=== PATIENT | male | born 1995 | race Caucasian/White ===

== ENCOUNTER 2020-06-09 15:31 | Outpatient (REF) | payer BC, SELFPAY | END 2020-06-09 15:32 | disposition home or self-care (01) | LOC: HO.LAB 15:31 | PROVIDERS: Visit Provider Internal Medicine | DX: Z20.828 Contact with and (suspected) exposure to other viral communicable diseases (principal) | CPT/HCPCS: C9803; U0003 ==

== ENCOUNTER 2022-07-29 14:03 | Outpatient (REF) | payer BC, SELFPAY ==
[2022-07-29 16:32] LABS: Hematocrit 43.9 % (42.0-52.0); Hemoglobin 14.4 g/dl (14.0-18.0); Mean Corpuscular HGB Conc 32.8 g/dl (31.0-36.0); Mean Corpuscular Volume 85.2 fL (80.0-98.0); Mean Platelet Volume 11.7 fL (9.4-12.4); Platelet Count 235 X10*3/uL (160-400); Red Blood Count 5.15 X10*6/uL (4.60-5.80); Red Cell Distribution Width 12.9 % (11.0-16.0); White Blood Count 7.1 X10*3/uL (4.8-10.8)
[2022-07-29 16:54] LABS: Alanine Aminotransferase 21 U/L (0-40); Albumin Level 4.2 g/dL (3.5-5.0); Alkaline Phosphatase 78 U/L (39-117); Anion Gap 14 (12-20); Aspartate Amino Transferase 17 U/L (5-37); Bilirubin Direct < 0.2 mg/dL (0.0-0.5); Bilirubin Total 0.5 mg/dL (0.0-1.0); Blood Urea Nitrogen 18 mg/dL (9-16); Calcium 9.4 mg/dL (8.4-10.2); Carbon Dioxide 24 mmol/L (22-29); Chloride 106 mmol/L (96-108); Cholesterol 217 mg/dL; Estimated Glomerular Filt Rate > 60; Glucose Random 84 mg/dL (60-115); HDL Cholesterol 40 mg/dL; LDL Cholesterol Calculated 163 mg/dl; Potassium 4.1 mmol/L (3.3-5.1); Sodium 140 mmol/L (135-145); Total Protein 7.1 g/dL (6.5-8.0); Triglycerides 71 mg/dL
[2022-07-29 17:07] LABS: Thyroid Stimulating Hormone 1.37 uIU/mL (0.32-4.0)
== END 2022-07-29 14:04 | disposition home or self-care (01) ==
LOC: HO.HMGCLDS 14:03
PROVIDERS: PCP Internal Medicine; Visit Provider Internal Medicine
DX: Z00.00 Encounter for general adult medical examination without abnormal findings (principal); K21.9 Gastro-esophageal reflux disease without esophagitis
CPT/HCPCS: 36415; 80048; 80061; 80076; 84443; 85027

== ENCOUNTER 2022-10-11 13:55 | Outpatient (REF) | payer BC, SELFPAY ==
[2022-10-11 16:33] LABS: Appearance Urine Clear; Color Urine Yellow; Glucose Urine UA Negative (Negative); Leukocyte Esterase Urine Negative (Negative); Nitrite Urine Negative (Negative); Specific Gravity - Urine 1.025 (1.005-1.025); Urine Blood Negative (Negative); Urine Ketones Negative (Negative); Urine Protein Negative (Neg-Trace)
[2022-10-11 16:59] LABS: MANUAL DIFF FLAG NO
[2022-10-11 17:08] LABS: Basophils Absolute Auto 0.1 X10*3/uL (0.0-0.2); Basophils Percent Auto 0.8 % (0-2); Eosinophils Absolute Auto 0.2 X10*3/uL (0.0-0.4); Eosinophils Percent Auto 2.8 % (0-4); Hemoglobin 15.1 g/dl (14.0-18.0); Imm Gran Abs Auto 0.01 X10*3/uL (0.00-0.03); Imm Gran Pct Auto 0.2 % (0.0-0.4); Lymphocytes Absolute Auto 2.4 X10*3/uL (1.2-4.9); Lymphocytes Percent Auto 39.9 % (20-40); Mean Corpuscular HGB Conc 33.6 g/dl (31.0-36.0); Mean Corpuscular Volume 83.3 fL (80.0-98.0); Mean Platelet Volume 12.1 fL (9.4-12.4); Monocytes Absolute Auto 0.5 X10*3/uL (0.1-1.2); Monocytes Percent Auto 7.7 % (2-11); Neutrophils Absolute Auto 2.9 x10*3/uL (2.0-8.3); Neutrophils Percent Auto 48.6 % (45-73); Platelet Count 242 X10*3/uL (160-400)
[2022-10-11 17:28] LABS: Alanine Aminotransferase 25 U/L (0-40); Albumin Level 4.3 g/dL (3.5-5.0); Alkaline Phosphatase 73 U/L (39-117); Anion Gap 11 (12-20); Aspartate Amino Transferase 19 U/L (5-37); Bilirubin Total 0.8 mg/dL (0.0-1.0); Blood Urea Nitrogen 17 mg/dL (9-16); Calcium 9.4 mg/dL (8.4-10.2); Carbon Dioxide 25 mmol/L (22-29); Chloride 108 mmol/L (96-108); Cholesterol 236 mg/dL; Estimated Glomerular Filt Rate > 60; Glucose Fasting 99 mg/dL (60-99); HDL Cholesterol 40 mg/dL; LDL Cholesterol Calculated 177 mg/dl; Potassium 4.4 mmol/L (3.3-5.1); Sodium 140 mmol/L (135-145); Total Protein 7.2 g/dL (6.5-8.0); Triglycerides 95 mg/dL
[2022-10-11 17:44] LABS: TSH reflex Free T4 2.36 uIU/mL (0.32-4.0)
== END 2022-10-11 13:56 | disposition home or self-care (01) ==
LOC: HO.HMGCLDS 13:55
PROVIDERS: PCP Nurse Practitioner Family; Visit Provider Nurse Practitioner Family
DX: Z00.00 Encounter for general adult medical examination without abnormal findings (principal)
CPT/HCPCS: 36415; 80053; 80061; 81003; 84443; 85025

== ENCOUNTER 2022-10-12 11:08 | Emergency (ER) | payer BC, SELFPAY ==
--- NOTE | ~2022-10-12 | XR_ITS ---
EXAMINATION: XR FOOT, LEFT CLINICAL INFORMATION: Trauma COMPARISON: None available. TECHNIQUE: AP, lateral, and oblique views of the left foot. FINDINGS: The bones and soft tissues are normal. No fracture. Alignment is anatomic. Joint spaces are maintained. XR/XR foot LT 2V IMPRESSION: Normal left foot.
[2022-10-12 11:12] VITALS: BP 132/84; PULSE 65; RESP 20; TEMP 36.1; O2SAT 100; BMI 31.3
--- NOTE | 2022-10-12 11:13 | ED_ITS ---
HPI - Extremity Injury (Lower) General Chief Complaint: Skin/Abscess/Foreign Body <Grace Biswas NP - Last Filed: 10/12/22 11:15> Stated Complaint: L foot pain/ rash <Grace Biswas NP - Last Filed: 10/12/22 11:15> Time Seen by Provider: 10/12/22 11:28 <Grace Biswas NP - Last Filed: 10/12/22 11:15> History of Present Illness HPI Narrative: Patient complains of injury to the left 2nd toe and toenail after he stubbed it in the shower yesterday, he has pain where the nail inserts into the nail fold, no numbness no weakness no tingling no other injury <CAM Curry - Last Filed: 10/15/22 14:00> Related Data Home Medications: Home Medications Medication Instructions Recorded Confirmed fluconazole 150 mg tablet 150 mg PO QWEEK 10/05/22 10/05/22 Previous Rx's Medication Instructions Recorded doxycycline hyclate 100 mg capsule 100 mg PO BID 10 days #20 caps 10/05/22 omeprazole 20 mg capsule,delayed 20 mg PO DAILY 90 days #90 caps 10/05/22 release ibuprofen 600 mg tablet 600 mg PO Q6H PRN pain #20 tabs 10/12/22 oxycodone 5 mg tablet 5 mg PO Q6H PRN pain #10 tabs 10/12/22 oxycodone 5 mg tablet 5 mg PO Q6H PRN pain #10 tabs 10/12/22 <Grace Biswas NP - Last Filed: 10/12/22 11:15> Allergies/Adverse Reactions: Allergies Allergy/AdvReac Type Severity Reaction Status Date / Time No Known Allergies Allergy Unverified 10/05/22 14:33 <Grace Biswas NP - Last Filed: 10/12/22 11:15> FORMERLY [facility], [facility] Past Medical History Source: nursing notes reviewed <CAM Curry - Last Filed: 10/15/22 14:00> Family History Family History: Family History (Updated 10/05/22 @ 14:36 by Nishi Herring CMA) Mother Substance use disorder <Grace Biswas NP - Last Filed: 10/12/22 11:15> Social History Social History: Social History Housing: Apartment Alcohol intake: current Alcohol intake frequency: holidays/special occasions only Patient Tobacco Use Status: Former Tobacco user Quit Date: quit off and on Smoked in Last 30 Days: No Use of substances other than those prescribed or required for medical reasons: No Advance Directives: No Advance Directives Information Provided: No Current occupational status: employed Current occupation: [employer] Current occupational exposures/hazards: No Cognitive needs: No Hearing needs: No Vision needs: No <Grace Biswas NP - Last Filed: 10/12/22 11:15> Physical Exam Vital Signs: Vital Signs: Last Vital Signs Temp 96.9 F 10/12/22 11:12 Pulse 65 10/12/22 11:12 Resp 20 10/12/22 11:12 BP 132/84 10/12/22 11:12 Pulse Ox 100 10/12/22 11:12 O2 Del Method Room Air 10/12/22 11:12 BMI result Body Mass Index 31.3 <Grace Biswas NP - Last Filed: 10/12/22 11:15> Vital Signs: Last Vital Signs Temp 96.9 F 10/12/22 11:12 Pulse 65 10/12/22 11:12 Resp 20 10/12/22 11:12 BP 132/84 10/12/22 11:12 Pulse Ox 100 10/12/22 11:12 O2 Del Method Room Air 10/12/22 11:12 BMI result Body Mass Index 31.3 <CAM Curry - Last Filed: 10/15/22 14:00> General appearance no distress Head is normocephalic atraumatic Neck is supple The back full range of motion Extremities the left 2nd toe has scabbing and deformity of the nail right at its entrance to the nail bed at the nail fold, there is tenderness to the area there is no obvious laceration it is neurovascular intact distal there is no redness or signs of infection <CAM Curry - Last Filed: 10/15/22 14:00> Course Course Course Narrative: This is a rapid medical exam. Deferred additional HPI, ROS, PE to primary provider. 27 yo male here with partial nail avulsion/blunt injury from a radiator yesterday. Unsure of tetanus status. WIll check x-rays. VSS <Grace Biswas NP - Last Filed: 10/12/22 11:15> This is a rapid medical exam. Deferred additional HPI, ROS, PE to primary provider. 27 yo male here with partial nail avulsion/blunt injury from a radiator yesterday. Unsure of tetanus status. WIll check x-rays. VSS Injury to left 2nd toe nail bed, the toe was anesthetized with a digital block cleansed with Betadine and check to see if the nail could be trimmed After cleaning off the blood the nail is partly avulsed from the nail bed at the base, the nail was pushed back in to the nail fold and was left in place, there was no significant subungual hematoma, x-ray of the toe was negative Patient was given a bandage and discharged from the department with advice to return if it gets red or swollen or any signs of infection <CAM Curry - Last Filed: 10/15/22 14:00> Medications Administered Discontinued Medications Generic Name Dose Route Start Last Admin Trade Name Freq PRN Reason Stop Dose Admin Bacitracin 1 appl 10/12/22 14:12 10/12/22 14:23 Bacitracin Oint 0.9 Gm Packet TOPICAL 10/12/22 14:13 1 appl ONCE ONE Administration Protocol Diphtheria/Tetanus/Acell Pertussis 0.5 ml 10/12/22 14:29 10/12/22 14:39 Diphth,Pertus(Acell),Tet Adult 0.5 Ml Syringe IM 10/12/22 14:30 0.5 ml .ONCE ONE Administration Lidocaine HCl 5 ml 10/12/22 13:17 10/12/22 13:25 Lidocaine Hcl 1 % Mpf 5 Ml Vial SUBCUT 10/12/22 13:18 5 ml ONCE ONE Administration Lidocaine HCl 5 ml 10/12/22 13:17 10/12/22 13:25 Lidocaine Hcl 1 % Mpf 5 Ml Vial SUBCUT 10/12/22 13:18 5 ml ONCE ONE Administration <Grace Biswas NP - Last Filed: 10/12/22 11:15> Medications Administered Discontinued Medications Generic Name Dose Route Start Last Admin Trade Name Freq PRN Reason Stop Dose Admin Bacitracin 1 appl 10/12/22 14:12 10/12/22 14:23 Bacitracin Oint 0.9 Gm Packet TOPICAL 10/12/22 14:13 1 appl ONCE ONE Administration Protocol Diphtheria/Tetanus/Acell Pertussis 0.5 ml 10/12/22 14:29 10/12/22 14:39 Diphth,Pertus(Acell),Tet Adult 0.5 Ml Syringe IM 10/12/22 14:30 0.5 ml .ONCE ONE Administration Lidocaine HCl 5 ml 10/12/22 13:17 10/12/22 13:25 Lidocaine Hcl 1 % Mpf 5 Ml Vial SUBCUT 10/12/22 13:18 5 ml ONCE ONE Administration Lidocaine HCl 5 ml 10/12/22 13:17 10/12/22 13:25 Lidocaine Hcl 1 % Mpf 5 Ml Vial SUBCUT 10/12/22 13:18 5 ml ONCE ONE Administration <CAM Curry - Last Filed: 10/15/22 14:00> Discharge Plan Discharge Clinical Impression: Avulsion of toenail of left foot, Contusion of toe <Grace Biswas NP - Last Filed: 10/12/22 11:15> Patient Disposition: Home, Self-Care <Grace Biswas NP - Last Filed: 10/12/22 11:15> Additional Instructions: The nail was partly avulsed from the nail bed, it is pushed securely back in place and hopefully new toenail will grow out There was no sign of any infection now, but if it gets red and increasingly swollen or painful or any drainage or any signs of infection return to the ER any time X-ray did not show any broken bone Follow with orthopedist or sterilizer machine operator as needed You got a tetanus shot today <Grace Biswas NP - Last Filed: 10/12/22 11:15> Prescriptions: New ibuprofen 600 mg tablet 600 mg PO Q6H PRN (Reason: pain) Qty: 20 0RF oxycodone 5 mg tablet 5 mg PO Q6H PRN (Reason: pain) Qty: 10 0RF Rx Instructions: Partial Fill upon patient request. oxycodone 5 mg tablet 5 mg PO Q6H PRN (Reason: pain) Qty: 10 0RF Rx Instructions: Partial Fill upon patient request. No Action fluconazole 150 mg tablet 150 mg PO QWEEK doxycycline hyclate 100 mg capsule 100 mg PO BID 10 Days Qty: 20 0RF omeprazole 20 mg capsule,delayed release(DR/EC) 20 mg PO DAILY 90 Days Qty: 90 0RF <Grace Biswas NP - Last Filed: 10/12/22 11:15> Stand Alone Forms: Work/School Release <Grace Biswas NP - Last Filed: 10/12/22 11:15> Interventions: ED Discharge Assessment Last Done: 10/12/22 15:05 <Grace Biswas NP - Last Filed: 10/12/22 11:15> Discharge Date/Time: 10/12/22 15:05 <Grace Biswas NP - Last Filed: 10/12/22 11:15>
[2022-10-12] MEDS: Lidocaine HCl 1 % MPF 5 ML VIAL SUBCUT ×2 (13:25)
--- NOTE | 2022-10-12 13:25 | PC.NURSE ---
licocaine admin by PA
[2022-10-12] MEDS: Bacitracin Oint 0.9 GM PACKET 1 APPL TOPICAL (14:23)
[2022-10-12] MEDS: Diphth,Pertus(ACell),Tet Adult 0.5 ML SYRINGE IM (14:39)
== END 2022-10-12 15:05 | disposition home or self-care (01) ==
PROVIDERS: Emergency Provider Emergency Medicine Emergency Medical Services; PCP Nurse Practitioner Family
DX: S90.415A Abrasion, left lesser toe(s), initial encounter (principal); S90.122A Contusion of left lesser toe(s) without damage to nail, initial encounter; Y29.XXXA Contact with blunt object, undetermined intent, initial encounter; Y93.9 Activity, unspecified; Y92.002 Bathroom of unspecified non-institutional (private) residence as the place of occurrence of the external cause; Y99.9 Unspecified external cause status; Z79.899 Other long term (current) drug therapy; Z23 Encounter for immunization
CPT/HCPCS: 73620; 90471; 90715; 99283; 99284

== ENCOUNTER → 2022-10-26 15:11 | Outpatient (BNVA) | payer BC, SELFPAY | PROVIDERS: PCP Nurse Practitioner Family; Referring Provider Nurse Practitioner Family; Visit Provider Surgery | DX: Z13.89 Encounter for screening for other disorder (principal) ==

== ENCOUNTER 2023-01-30 15:18 | Outpatient (AMB) | payer BC, SELFPAY ==
--- NOTE | 2023-01-30 15:32 | MHC.OFFVIS ---
Intake Vital Signs 01/30/23 15:33 Height 5 ft 9 in Weight 224 lb 13.944 oz BMI 33.2 BP 120/82 Blood Pressure Location Lt brachial Position Sitting Pulse 55 Intake Visit Reasons: Gastroesophageal reflux disease (GERD) Intake Note: Ambrocio presents in office as a new.patient for GERD. PT CC: pt reports having abdominal pain , constipation, GERD pt denies any other GI Issues Clinical Laboratory Technician Required: No Accompanied by: Self / Same As Patient Allergies No Known Allergies Allergy (Unverified 01/30/23 15:32) HPI Gastroesophageal reflux disease (GERD) HPI Details 27-year-old male with past medical history of dyslipidemia, obesity, chronic GERD is here today for initial consultation. Patient states that he had upper endoscopy over 10 years ago. Has been placed on omeprazole and stop that over a week ago. Patient states that omeprazole was making him be constipated. Patient is not on any particular diet. Patient admits to eating late at night at times. Diagnosed with hyperlipidemia. Reports family history hypertension and diabetes, patient's blood glucose level were normal. Patient denies any nausea or vomiting. Reports postprandial abdominal bloating. Reports that he feels constipated. Patient reports dyspepsia without dysphagia or odynophagia. Denies melena, hematochezia, unintentional weight loss or ribbon like stools. PFSH Medical History Sacral pain Family History Mother Substance use disorder Social History Housing: Apartment Alcohol intake: current Alcohol intake frequency: holidays/special occasions only Patient Tobacco Use Status: Former Tobacco user Quit Date: quit off and on Current occupational status: employed Current occupation: [employer] Current occupational exposures/hazards: No Cognitive needs: No Hearing needs: No Vision needs: No Review of Systems Const Denies weight gain and Denies weight loss ENT Reports no additional complaints, Denies dysphagia and Denies odynophagia Card Reports no additional complaints Resp Reports no additional complaints GI Reports abdominal pain (Epigastric), Denies belching, Denies melena, Reports bloating, Reports constipation, Denies dysphagia, Denies excessive flatus, Reports dyspepsia, Reports heartburn, Denies diarrhea, Denies loose stools, Denies nausea, Denies odynophagia and Denies vomiting Reports no additional complaints Musc Reports no additional complaints Neuro Reports no additional complaints Psych Reports no additional complaints Endo Reports no additional complaints Physical Exam Vital Signs: Last Vital Signs Pulse 55 01/30/23 15:33 BP 120/82 01/30/23 15:33 BMI result Body Mass Index 33.2 Const General: healthy appearing, no acute distress and well developed Nutritional Appearance: obese Orientation/consciousness: patient oriented x3 HEENT Head: Yes normal to inspection, Yes normocephalic and Yes atraumatic Face and sinus: Yes normal facial exam Mouth: Normal oral and palatal mucosa present Throat: Yes posterior oropharynx normal, Yes tonsils normal and Yes uvula midline Eyes General: appearance normal, both eyes and all related structures Neck Neck: Yes normal visual inspection, Yes full ROM and Yes trachea midline Thyroid: Thyroid normal Resp Effort & Inspection: normal respiratory effort, able to speak in complete sentences, no tracheal deviation and symmetric chest movement Auscultation: clear to auscultation bilaterally Cardio Rate: regular rate Heart sounds: S1 normal heart sound present and S2 normal heart sound present GI Inspection: Yes normal to inspection, No distended and Yes obesity Palpation (GI): Soft to palpation, not firm, nontender and No hepatosplenomegaly present Auscultation: normal bowel sounds General: Yes no CVA tenderness Back/Spine/Pelvis Back: no CVA tenderness Skin General skin exam: elasticity normal, turgor normal and dry skin Neuro General: patient oriented x3 Psych Appearance: grossly normal Mental Status: mental status grossly normal Speech and movement: Normal speech and movement present Assessment & Plan Assessment & Plan (1) GERD (gastroesophageal reflux disease): Code(s): K21.9 - Gastro-esophageal reflux disease without esophagitis Qualifiers: Esophagitis presence: esophagitis presence not specified Qualified Code(s): K21.9 - Gastro-esophageal reflux disease without esophagitis Plan: Will hold off on starting patient on PPI. Patient will return for H pylori breath test. Will treat empirically if positive. Patient was encouraged to avoid dietary triggers and late night snacking. (2) Postprandial abdominal bloating: Code(s): R14.0 - Abdominal distension (gaseous) Plan: Postprandial abdominal bloating. Discussed with patient low FODMAP diet. List of food recommended as well as list of food to avoid given to patient. Patient reports epigastric discomfort will check transglutaminase (3) Constipation: Code(s): K59.00 - Constipation, unspecified Qualifiers: Constipation type: slow transit constipation Qualified Code(s): K59.01 - Slow transit constipation Plan: Patient will start taking MiraLax daily. Patient was also encouraged to increase fluid intake and activity to promote better bowel motility. I will see him in 2 months, sooner on as needed basis. Patient is agreeable to this plan and verbalizes understanding of instructions. He was given the opportunity to ask questions and all questions answered. Thank you for allowing me to participate in his care Orders: Orders H Pylori Breath Test Today Transglutaminase IgA Today R10.9 - Unspecified abdominal pain Transglutaminase Ab IgG Today R10.9 - Unspecified abdominal pain Medications: New polyethylene glycol 3350 (Miralax) 17 grams PO DAILY 510 grams 2RF Coding Level of Care Code New Pt Level 3 (67086) Diagnoses GERD (gastroesophageal reflux disease) K21.9 Esophagitis presence: esophagitis presence not specified Postprandial abdominal bloating R14.0 Constipation K59.01 Constipation type: slow transit constipation Time Spent (min) 40 Comment 30 minutes spent with patient and additional 10 minutes spent reviewing his records
[2023-01-30 15:33] VITALS: BP 120/82; PULSE 55; BMI 33.2
== END 2023-01-30 15:58 | disposition home or self-care (01) ==
PROVIDERS: PCP Nurse Practitioner Family; Visit Provider Nurse Practitioner Family
DX: K21.9 Gastro-esophageal reflux disease without esophagitis (principal); R14.0 Abdominal distension (gaseous); K59.01 Slow transit constipation
CPT/HCPCS: 99203

== ENCOUNTER → 2023-01-30 15:18 | Outpatient (BNVA) | payer BC, SELFPAY | PROVIDERS: PCP Nurse Practitioner Family; Visit Provider Nurse Practitioner Family ==

== ENCOUNTER 2023-02-02 09:47 | Outpatient (REF) | payer BC, SELFPAY ==
[2023-02-04 10:30] LABS: H Pylori Breath Test Negative (Negative)
== END 2023-02-02 09:48 | disposition home or self-care (01) ==
LOC: HO.LNP 09:47
PROVIDERS: PCP Nurse Practitioner Family; Visit Provider Nurse Practitioner Family
DX: Z11.2 Encounter for screening for other bacterial diseases (principal)
CPT/HCPCS: 83013

== ENCOUNTER 2023-02-07 09:13 | Outpatient (REF) | payer BC, SELFPAY ==
[2023-02-07 12:09] LABS: Cholesterol 233 mg/dL; HDL Cholesterol 38 mg/dL; LDL Cholesterol Calculated 178 mg/dl; Triglycerides 86 mg/dL
[2023-02-09 09:37] LABS: Transglutaminase Ab IgG <1.0 U/mL; Transglutaminase IgA <1.0 U/mL
== END 2023-02-07 09:14 | disposition home or self-care (01) ==
LOC: HO.HMGCLDS 09:13
PROVIDERS: Absent Provider Nurse Practitioner Family; PCP Nurse Practitioner Family; Visit Provider Nurse Practitioner Family
DX: R10.9 Unspecified abdominal pain (principal); E78.5 Hyperlipidemia, unspecified
CPT/HCPCS: 36415; 80061; 86364

== ENCOUNTER 2023-02-07 15:25 | Outpatient (AMB) | payer BC, SELFPAY ==
--- NOTE | 2023-02-07 15:28 | MHC.PC.OV ---
Vital Signs 02/07/23 15:34 Height 5 ft 9 in Weight 218 lb BMI 32.2 BP 128/86 Blood Pressure Location Rt brachial Position Sitting Pulse 87 Pulse Source Pulse Oximeter Pulse Oximetry (%) 98 Oxygen Delivery Method Room Air Intake Visit Reasons: 4 month follow up Allergies No Known Allergies Allergy (Unverified 02/07/23 15:37) Medication List - Last Reconciled 02/07/23 by HALIMA Mitchell atorvastatin 10 mg PO BEDTIME omeprazole 20 mg PO DAILY 90 days polyethylene glycol 3350 (Miralax) 17 grams PO DAILY Tobacco use date assessed: 02/07/23 Dental Screening Dental Screen Date: 02/07/23 Did you have a dental visit in the last 12 months?: No Did you have a dental problem in the last 6 months where you did not have access to dental care?: No Was dental information given to patient?: No HPI 4 month follow up HPI Details Dyslipidemia: Pt's lipids were elevated. Will start atorvastatin 10mg and repeat labs in 2 months. Denies chest pain, shortness of breath, and dizziness. Pt is following up with GI due to chronic GERD. PFSH Medical History Sacral pain Family History Mother Substance use disorder Social History Housing: Apartment Alcohol intake: current Alcohol intake frequency: holidays/special occasions only Patient Tobacco Use Status: Former Tobacco user Quit Date: quit off and on Current occupational status: employed Current occupation: [employer] Current occupational exposures/hazards: No Cognitive needs: No Hearing needs: No Vision needs: No Questionnaire Thrive Questionnaire Date Thrive assessed: 10/05/22 VALDEZ-7 AMB Questionnaire VALDEZ-7 Date VALDEZ - 7 assessed: 10/05/22 Source: Developed by Drs. Nikita Galan, Gita Sen, Barrie Olmstead and colleagues, with an educational manny from [employer]. Review of Systems Const Reports as per HPI Physical exam (Primary Care) Vital Signs: Last Vital Signs Pulse 87 02/07/23 15:34 BP 128/86 02/07/23 15:34 Pulse Ox 98 02/07/23 15:34 Oxygen Delivery Method Room Air 02/07/23 15:34 BMI result Body Mass Index 32.2 Tobacco/Smoking Status: Tobacco use Status Tobacco use date assessed 02/07/23 02/07/23 15:38 Patient Tobacco Use Status Former Tobacco user 02/07/23 15:28 Thrive Assessment: Date of Thrive Assessment Date Thrive assessed 10/05/22 02/07/23 15:28 Const General: cooperative Nutritional Appearance: obese Orientation/consciousness: patient oriented x3 Resp Effort & Inspection: normal respiratory effort Auscultation: clear to auscultation bilaterally Cardio Rate: regular rate Rhythm: regular rhythm Heart sounds: S1 normal heart sound present and S2 normal heart sound present Neuro General: patient oriented x3 Psych Appearance: grossly normal Mental Status: mental status grossly normal Speech and movement: Normal speech and movement present Affect: normal affect Attitude: cooperative Thought process: Normal thought process present Thought content: Normal thought content present Insight: Good insight present (Psych) Judgement: Good judgement present (Psych) Assessment and Plan Assessment & Plan (1) Dyslipidemia: Code(s): E78.5 - Hyperlipidemia, unspecified Plan: Atorvastatin sent, repeat labs ordered Plan The patient agreed to the use of a regional medical director for this encounter. Scribed for HALIMA Salas by Mirlande Escobar regional medical director, on 02/07/2023 at 15:45 EST. Orders: Orders Complete Blood Count Auto Diff Today E78.5 - Hyperlipidemia, unspecified Comprehensive [place]. Panel Fast Today E78.5 - Hyperlipidemia, unspecified TSH reflex Free T4 Today E78.5 - Hyperlipidemia, unspecified UA CC w/rflx Micro + Cult Today E78.5 - Hyperlipidemia, unspecified Medications: New atorvastatin 10 mg PO BEDTIME 90 tabs 0RF Coding Level of Care Code Est Pt Level 3 (90539) Diagnoses Dyslipidemia E78.5
[2023-02-07 15:34] VITALS: BP 128/86; PULSE 87; O2SAT 98; BMI 32.2
== END 2023-02-07 15:55 | disposition home or self-care (01) ==
PROVIDERS: Visit Provider Nurse Practitioner Family
DX: E78.5 Hyperlipidemia, unspecified (principal)
CPT/HCPCS: 99213

== ENCOUNTER 2023-03-13 12:59 | Outpatient (AMB) | payer BC, SELFPAY ==
--- NOTE | 2023-03-13 13:03 | MHC.OFFVIS ---
Intake Vital Signs 03/13/23 13:05 Height 5 ft 9 in Weight 225 lb 4.999 oz BMI 33.3 BP 125/76 Blood Pressure Location Lt brachial Position Sitting Pulse 60 Intake Visit Reasons: 6 week follow up Intake Note: Ambrocio presents in office as a est.patient for a 6week f/u for constipation PT CC: pt reports having Heart burn pt denies any other GI Issues Hydro Pneumatic Tester Required: No Accompanied by: Self / Same As Patient Allergies No Known Allergies Allergy (Unverified 03/13/23 13:05) HPI 6 week follow up HPI Details LAST VISIT GERD (gastroesophageal reflux disease) Will hold off on starting patient on PPI. Patient will return for H pylori breath test. Will treat empirically if positive. Patient was encouraged to avoid dietary triggers and late night snacking. Postprandial abdominal bloating Postprandial abdominal bloating. Discussed with patient low FODMAP diet. List of food recommended as well as list of food to avoid given to patient. Patient reports epigastric discomfort will check transglutaminase Constipation Patient will start taking MiraLax daily. Patient was also encouraged to increase fluid intake and activity to promote better bowel motility. I will see him in 2 months, sooner on as needed basis. Patient is agreeable to this plan and verbalizes understanding of instructions. He was given the opportunity to ask questions and all questions answered. ? TODAY'S VISIT: Patient is here today for follow-up. Patient reports that he is moving his bowels better now, however he continues to have epigastric discomfort postprandially and dyspepsia. Patient reports that his reflux is worse after meals. Sometimes occasionally at bedtime. Patient reports that he tries not to eat late at night. However sometimes he will have food later in the evening. Patient is trying to avoid dietary triggers. Reports that he is trying to eat better and trying to lose weight. Patient trying to avoid eating food that is fried. H pylori was negative. Transglutaminase was normal. Patient denies any nausea or vomiting. Denies melena, hematochezia, unintentional weight loss or ribbon like stools. PFSH Medical History Sacral pain Family History Mother Substance use disorder Social History Housing: Apartment Alcohol intake: current Alcohol intake frequency: holidays/special occasions only Patient Tobacco Use Status: Former Tobacco user Quit Date: quit off and on Current occupational status: employed Current occupation: [employer] Current occupational exposures/hazards: No Cognitive needs: No Hearing needs: No Vision needs: No Review of Systems Const Denies weight gain and Denies weight loss ENT Reports no additional complaints, Denies dysphagia and Denies odynophagia Card Reports no additional complaints Resp Reports no additional complaints GI Denies abdominal pain, Denies belching, Denies melena, Denies bloating, Denies change in bowel habits, Denies dysphagia, Denies excessive flatus, Denies dyspepsia, Reports heartburn, Denies diarrhea, Denies loose stools, Denies nausea, Denies odynophagia and Denies vomiting Reports no additional complaints Musc Reports no additional complaints Neuro Reports no additional complaints Psych Reports no additional complaints Endo Reports no additional complaints Physical Exam Vital Signs: Last Vital Signs Pulse 60 03/13/23 13:05 BP 125/76 03/13/23 13:05 BMI result Body Mass Index 33.3 Const General: healthy appearing, no acute distress and well developed Nutritional Appearance: obese Orientation/consciousness: patient oriented x3 HEENT Head: Yes normal to inspection, Yes normocephalic and Yes atraumatic Face and sinus: Yes normal facial exam Mouth: Normal oral and palatal mucosa present Throat: Yes posterior oropharynx normal, Yes tonsils normal and Yes uvula midline Eyes General: appearance normal, both eyes and all related structures Neck Neck: Yes normal visual inspection, Yes full ROM and Yes trachea midline Thyroid: Thyroid normal Resp Effort & Inspection: normal respiratory effort, able to speak in complete sentences, no tracheal deviation and symmetric chest movement Auscultation: clear to auscultation bilaterally Cardio Rate: regular rate Heart sounds: S1 normal heart sound present and S2 normal heart sound present GI Inspection: Yes normal to inspection, No distended and Yes obesity Palpation (GI): Soft to palpation, not firm, nontender and No hepatosplenomegaly present Auscultation: normal bowel sounds General: Yes no CVA tenderness Back/Spine/Pelvis Back: no CVA tenderness Skin General skin exam: elasticity normal, turgor normal and dry skin Neuro General: patient oriented x3 Psych Appearance: grossly normal Mental Status: mental status grossly normal Speech and movement: Normal speech and movement present Assessment & Plan Assessment & Plan (1) GERD (gastroesophageal reflux disease): Code(s): K21.9 - Gastro-esophageal reflux disease without esophagitis Qualifiers: Esophagitis presence: esophagitis presence not specified Qualified Code(s): K21.9 - Gastro-esophageal reflux disease without esophagitis (2) Postprandial abdominal bloating: Code(s): R14.0 - Abdominal distension (gaseous) Plan Patient can continue omeprazole. Discussed with patient avoiding dietary triggers in late night snacking. He can continue take MiraLax to help him empty his bowels better. Patient will go for upper endoscopy to rule out gastritis, duodenitis, esophagitis, gastric or peptic ulcers, Ron's. Patient denies any cardiac or respiratory symptoms. Denies history of sleep apnea. Not on any anticoagulation medication what to expect before during and after the procedure discussed with patient. Patient will be seen after the procedure, sooner on as needed basis. Patient is agreeable to this plan and verbalizes understanding of instructions. He was given the opportunity to ask questions and all questions answered. Thank you for allowing me to participate in his care Coding Level of Care Code Est Pt Level 4 (47997) Diagnoses Gastroesophageal reflux disease, unspecified whether esophagitis present K21.9 Esophagitis presence: esophagitis presence not specified Postprandial abdominal bloating R14.0 Time Spent (min) 35 Comment 20 minutes spent with patient and additional 15 minutes spent reviewing his records
[2023-03-13 13:05] VITALS: BP 125/76; PULSE 60; BMI 33.3
== END 2023-03-13 13:31 | disposition home or self-care (01) ==
PROVIDERS: PCP Nurse Practitioner Family; Visit Provider Nurse Practitioner Family
DX: K21.9 Gastro-esophageal reflux disease without esophagitis (principal); R14.0 Abdominal distension (gaseous)
CPT/HCPCS: 99214

== ENCOUNTER → 2023-03-13 12:59 | Outpatient (BNVA) | payer BC, SELFPAY | PROVIDERS: PCP Nurse Practitioner Family; Visit Provider Nurse Practitioner Family ==

== ENCOUNTER 2023-05-22 12:25 | Day surgery (SDC) | payer BC, OTHER, SELFPAY ==
[2023-05-16 14:46] VITALS: BMI 33.2
--- NOTE | 2023-05-17 09:52 | HO.ANESPROP2 ---
Documented by User: Cydney Vera NP 05/17/23 09:55 HPI - Anesthesia Eval Consult details Narrative: 27yo M for Upper Endoscopy PMFSH Active Problems Active Problems: All Active Problems (Updated 05/16/23 @ 14:43 by Anette Francisco RN) Dyslipidemia (Acute) Acne (Acute) Chronic GERD (Acute) Pilonidal cyst (Acute) Physical exam (Acute) GERD (gastroesophageal reflux disease) (Acute) Sacral pain (Acute) Past Medical History Medical History (Updated 05/16/23 @ 14:43 by Anette Francisco RN) Elevated cholesterol GERD (gastroesophageal reflux disease) Sacral pain Family History Family History Mother Substance use disorder Surgical History Surgical History (Updated 05/16/23 @ 14:45 by Anette Francisco RN) History of surgical removal of pilonidal cyst Social History Housing: Apartment Alcohol intake: current Alcohol intake frequency: holidays/special occasions only Patient Tobacco Use Status: Former Tobacco user Quit Date: quit off and on Use of substances other than those prescribed or required for medical reasons: No Are you DNR?: No Advance Directives: No Advance Directives Information Provided: Yes Current occupational status: employed Current occupation: [employer] Current occupational exposures/hazards: No Cognitive needs: No Hearing needs: No Vision needs: No Meds Allergies Allergy/AdvReac Type Severity Reaction Status Date / Time No Known Allergies Allergy Unverified 03/13/23 13:05 Exam Height,Weight and Vital Signs: Height 5 ft 9 in Weight 102.058 kg Pertinent Lab Results Pertinent Lab Results: Laboratory Tests 10/11/22 14:04 WBC 6.0 Hgb 15.1 Hct 45.0 Plt Count 242 Sodium 140 Potassium 4.4 Chloride 108 Carbon Dioxide 25 BUN 17 H Creatinine 0.83 Assessment and Plan Assessment Anesthesia Assessment: Chart Reviewed Documented by User: Riddhi Rashid MD 05/22/23 13:02 [facility] Past Medical History Medical History (Updated 05/16/23 @ 14:43 by Anette Francisco RN) Elevated cholesterol GERD (gastroesophageal reflux disease) Sacral pain Family History Family History Mother Substance use disorder Family history of problems with anesthesia: No Surgical History Surgical History (Updated 05/16/23 @ 14:45 by Anette Francisco, AKIKO) History of surgical removal of pilonidal cyst History of Problems with Anesthesia: No Social History Housing: Apartment Alcohol intake: current Alcohol intake frequency: holidays/special occasions only Patient Tobacco Use Status: Former Tobacco user Quit Date: quit off and on Use of substances other than those prescribed or required for medical reasons: No Are you DNR?: No Advance Directives: No Advance Directives Information Provided: Yes Current occupational status: employed Current occupation: [employer] Current occupational exposures/hazards: No Cognitive needs: No Hearing needs: No Vision needs: No Meds Allergies Allergy/AdvReac Type Severity Reaction Status Date / Time No Known Allergies Allergy Unverified 03/13/23 13:05 Exam Airway Mallampati Class: II TM Dist: >3cm Neck ROM: Full Heart: rrr Lungs: cta Assessment and Plan Assessment Anesthesia Assessment: Anesthesia Plan Discussed Final Anesthetic Review Family History of Problems with Anesthesia: No History of Problems with Anesthesia: No NPO: Yes ASA Class: II Final Preanesthetic Review: No Changes in Pt Med Stat, Meds/Allgs Chart Reviewed and Consent Obtained/Reviewed Patient Risk: Intermediate Procedure Risk: Intermediate Anesthetic Plan Anesthetic Plan: MAC: Disposition: Standard PACU
[2023-05-22 12:52] VITALS: BP 147/87; PULSE 77; RESP 15; TEMP 36.1; O2SAT 97; BMI 32.5
--- NOTE | 2023-05-22 12:58 | MHC.SHP ---
Pre-Procedural Eval Section A Date of Service: 05/22/23 Section B Chief Complaint: GERD, dyspepsia Relevant Family History (Specify if Yes): No Relevant Social History: Tobacco Use (former smoker) Present Medications: see Short Stay Collaborative assessment Medical History: Significant History (GERD, Sacral pain) History of Previous Operations: Relevant previous surgery/procedure and date(s) (Surgery for pilonidal cyst) Allergies: Allergies Allergy/AdvReac Type Severity Reaction Status Date / Time No Known Allergies Allergy Unverified 03/13/23 13:05 Review of Systems Sugical H&P ROS: Negative: Constitution, Cardiovascular and Respiratory and Yes, Specify: Gastrointestinal (GERD) Exam Surgical H&P Exam: Normal: Heart, Normal: Lungs, Normal: Extremities and Normal: Abdomen Plan Diagnosis/Plan: Unchanged I have reviewed the history and physical and performed a pertinent physical examination on my patient. No changes have occurred unless specified. Time Spent With Patient Time: Total time managing care of this patient today ____ minutes.
--- NOTE | 2023-05-22 13:04 | W.PM.OPN ---
Operative Note Operative Note Date of Service: 05/22/23 Narrative: FLEXIBLE TRANSORAL UPPER GASTROINTESTINAL ENDOSCOPY WITH BIOPSIES Pre-op diagnosis: GERD, dyspepsia Post-op diagnosis: Gastritis, gastric erosions Endoscopist:? Jefry Martinez MD Anesthesia:?MAC Consent: Indications for the procedure and potential complications of bleeding, perforation, reaction to medications and missed diagnosis were discussed with the patient and informed consent was obtained. Instrument: Olympus GIF H 190 mid size upper endoscope Monitoring: Vital signs and clinical assessment, continuous EKG monitoring, Pulse oximetry, Carbon Dioxide monitoring and blood pressure monitoring were done throughout the procedure. Procedure: The patient was placed in the left lateral decubitis position and pre-procedure medications were administered and a bite block was placed. The endoscope was inserted into the mouth and advanced under direct vision to the third part of duodenum. A careful inspection was made as the upper endoscope was withdrawn including a retroflexed examination of the proximal stomach; Findings and interventions are described below. Findings: Larynx: Normal Esophagus: GE junction at 40 cms. No esophagitis or Ron's. Stomach: Chronic appearing linear erosions in the distal body - biopsied. Moderate gastric erythema with nodular appearing mucosa in the gastric body. Biopsies were obtained from the antrum and body of the stomach. Grade 2 flap valve on retroflexed examination of the cardia. Duodenum: Normal bulb and descending duodenum Intervention: Biopsies as noted above Impression and Post Procedure Diagnosis: Endoscopy Findings: STOMACH: Chronic appearing linear erosions in the distal body - biopsied - ? Related to NSAID use. Moderate gastric erythema with nodular appearing mucosa in the gastric body. Biopsies were obtained from the antrum and body of the stomach. Plan: Await pathology results Patient has an appointment on 06/05/23 in the GI Clinic with Shivani Hughes FNP-BC. GERD and Gastritis handouts were given in the discharge area
[2023-05-22 13:27] VITALS: BP 106/65; PULSE 103; RESP 16; TEMP 36.1; O2SAT 95
[2023-05-22 13:42] VITALS: BP 112/74; PULSE 76; RESP 14; TEMP 36.1; O2SAT 97
[2023-05-22 13:57] VITALS: BP 111/84; PULSE 66; RESP 16; O2SAT 99
--- NOTE | 2023-05-22 14:06 | ECG_ITS ---
Test Reason : chest pressure Blood Pressure : / mmHG Vent. Rate : 059 BPM Atrial Rate : 059 BPM P-R Int : 124 ms QRS Dur : 100 ms QT Int : 400 ms P-R-T Axes : 029 011 009 degrees QTc Int : 396 ms Sinus bradycardia with sinus arrhythmia Otherwise normal ECG No previous ECGs available Referred By: Jefry Martinez Electronically Signed By:TULIO BOLAND MD
[2023-05-22 14:12] VITALS: BP 117/73; PULSE 61; RESP 16; TEMP 36.1; O2SAT 98
== END 2023-05-22 15:34 | disposition home or self-care (01) ==
PROVIDERS: PCP Nurse Practitioner Family; Visit Provider Internal Medicine Gastroenterology
PROC: 0DJ08ZZ Inspection of Upper Intestinal Tract, Via Natural or Artificial Opening Endoscopic (ICD-10-PCS; CPT 43235; principal; 2023-05-22 13:30)
DX: K29.50 Unspecified chronic gastritis without bleeding (principal); K25.9 Gastric ulcer, unspecified as acute or chronic, without hemorrhage or perforation; K21.9 Gastro-esophageal reflux disease without esophagitis; R14.0 Abdominal distension (gaseous); M53.3 Sacrococcygeal disorders, not elsewhere classified; K59.00 Constipation, unspecified; E78.00 Pure hypercholesterolemia, unspecified; Z87.891 Personal history of nicotine dependence
CPT/HCPCS: 43239; 88305; 88342; 93005; J2704

== ENCOUNTER → 2023-05-22 12:25 | Outpatient (BNV) | payer BC, SELFPAY | PROVIDERS: PCP Nurse Practitioner Family; Visit Provider Internal Medicine Gastroenterology | DX: K29.70 Gastritis, unspecified, without bleeding (principal); K25.9 Gastric ulcer, unspecified as acute or chronic, without hemorrhage or perforation | CPT/HCPCS: 43239 ==

== ENCOUNTER 2023-06-05 12:00 | Outpatient (AMB) | payer BC, SELFPAY ==
--- NOTE | 2023-06-05 12:05 | MHC.OFFVIS ---
Intake Vital Signs 06/05/23 12:07 Height 5 ft 7 in Weight 223 lb 1.725 oz BMI 34.9 BP 143/76 H Blood Pressure Location Lt brachial Position Sitting Pulse 66 Intake Visit Reasons: S/p egd Intake Note: Patient returns in post op visit s/p EGD. CC: He underwent EGD with Dr. Martinez on 05/22/23. Patient continues to c/o GERD. [employer] Required: No Accompanied by: Self / Same As Patient Allergies No Known Allergies Allergy (Verified 06/05/23 12:15) Medication List - Last Reconciled 06/05/23 by LINETTE Cerda- atorvastatin 10 mg PO BEDTIME omeprazole 20 mg PO DAILY 90 days polyethylene glycol 3350 (Miralax) 17 grams PO DAILY PRN HPI S/p egd HPI Details LAST VISIT: GERD (gastroesophageal reflux disease) Postprandial abdominal bloating Plan Patient can continue omeprazole. Discussed with patient avoiding dietary triggers in late night snacking. He can continue take MiraLax to help him empty his bowels better. Patient will go for upper endoscopy to rule out gastritis, duodenitis, esophagitis, gastric or peptic ulcers, Ron's. Patient denies any cardiac or respiratory symptoms. Denies history of sleep apnea. Not on any anticoagulation medication what to expect before during and after the procedure discussed with patient. Patient will be seen after the procedure, sooner on as needed basis. Patient is agreeable to this plan and verbalizes understanding of instructions. He was given the opportunity to ask questions and all questions answered. UPPER ENDOSCOPY: Findings: Larynx: Normal Esophagus: GE junction at 40 cms. No esophagitis or Ron's. Stomach: Chronic appearing linear erosions in the distal body - biopsied. Moderate gastric erythema with nodular appearing mucosa in the gastric body. Biopsies were obtained from the antrum and body of the stomach. Grade 2 flap valve on retroflexed examination of the cardia. Duodenum: Normal bulb and descending duodenum Intervention: Biopsies as noted above Impression and Post Procedure Diagnosis: Endoscopy Findings: STOMACH: Chronic appearing linear erosions in the distal body - biopsied - ? Related to NSAID use. Moderate gastric erythema with nodular appearing mucosa in the gastric body. Biopsies were obtained from the antrum and body of the stomach. Plan: GERD and Gastritis handouts were given in the discharge area PATHOLOGY RESULTS: Diagnosis A. Gastric antrum, biopsy: Mild chronic inactive gastritis; no evidence of H. pylori, intestinal metaplasia or dysplasia. B. Gastric body, biopsy: Mild chronic inactive gastritis; no evidence of H. pylori, intestinal metaplasia or dysplasia. C. Gastric erosion, biopsy: Mild reactive gastropathy; no evidence of H. pylori, intestinal metaplasia or dysplasia TODAY'S VISIT: Patient is here today for follow-up and to discuss upper endoscopy results. Patient reports that he is doing better, however occasionally he will continue to have acid reflux. Patient reports that he is aware that this is related to some of the food that he eats. Patient is trying to lose weight. Trying to eat better. Avoiding eating late at night. Patient is also avoiding NSAIDs. Patient reports to have a good appetite. Denies any dyspepsia, dysphagia or odynophagia. Patient denies any melena, hematochezia, unintentional weight loss or ribbon like stools. Patient does admit to being constipated at times. [facility] Medical History Elevated cholesterol GERD (gastroesophageal reflux disease) Sacral pain Surgical History History of esophagogastroduodenoscopy (EGD) History of surgical removal of pilonidal cyst Family History Mother Substance use disorder Social History Housing: Apartment Alcohol intake: current Alcohol intake frequency: holidays/special occasions only Patient Tobacco Use Status: Former Tobacco user Quit Date: quit off and on Current occupational status: employed Current occupation: [employer] Current occupational exposures/hazards: No Cognitive needs: No Hearing needs: No Vision needs: No Review of Systems Const Denies weight gain and Denies weight loss ENT Reports no additional complaints, Denies dysphagia and Denies odynophagia Card Reports no additional complaints Resp Reports no additional complaints GI Denies abdominal pain, Denies belching, Denies melena, Denies bloating, Denies change in bowel habits, Denies dysphagia, Denies excessive flatus, Denies dyspepsia, Reports heartburn, Denies diarrhea, Denies loose stools, Denies nausea, Denies odynophagia and Denies vomiting Reports no additional complaints Musc Reports no additional complaints Neuro Reports no additional complaints Psych Reports no additional complaints Endo Reports no additional complaints Physical Exam Vital Signs: Last Vital Signs Pulse 66 06/05/23 12:07 BP 143/76 H 06/05/23 12:07 BMI result Body Mass Index 34.9 Const General: healthy appearing, no acute distress and well developed Nutritional Appearance: well nourished Orientation/consciousness: patient oriented x3 HEENT Head: Yes normal to inspection, Yes normocephalic and Yes atraumatic Face and sinus: Yes normal facial exam Mouth: Normal oral and palatal mucosa present Throat: Yes posterior oropharynx normal, Yes tonsils normal and Yes uvula midline Eyes General: appearance normal, both eyes and all related structures Neck Neck: Yes normal visual inspection, Yes full ROM and Yes trachea midline Thyroid: Thyroid normal Resp Effort & Inspection: normal respiratory effort, able to speak in complete sentences, no tracheal deviation and symmetric chest movement Auscultation: clear to auscultation bilaterally Cardio Rate: regular rate GI Inspection: Yes normal to inspection and No distended Palpation (GI): Soft to palpation, not firm, nontender and No hepatosplenomegaly present Auscultation: normal bowel sounds General: Yes no CVA tenderness Back/Spine/Pelvis Back: no CVA tenderness Skin General skin exam: elasticity normal, turgor normal and dry skin Neuro General: patient oriented x3 Psych Appearance: grossly normal Mental Status: mental status grossly normal Assessment & Plan Assessment & Plan (1) GERD (gastroesophageal reflux disease): Code(s): K21.9 - Gastro-esophageal reflux disease without esophagitis Qualifiers: Esophagitis presence: esophagitis presence not specified Qualified Code(s): K21.9 - Gastro-esophageal reflux disease without esophagitis (2) Gastritis: Code(s): K29.70 - Gastritis, unspecified, without bleeding Qualifiers: Chronicity: chronic Gastritis bleeding: without bleeding Gastritis type: superficial Qualified Code(s): K29.30 - Chronic superficial gastritis without bleeding Plan Results are upper endoscopy discussed with patient. No esophagitis or Ron's found. Mild chronic inactive gastritis and mild erosion seen most likely from NSAIDs use. Patient will avoid NSAIDs altogether. Will continue with omeprazole daily. Avoiding dietary triggers in late night snacking discussed with patient as well. Patient will try to also lose weight. Patient will use MiraLax to help her move his bowels. He will call the office if he will continue to have symptoms. We will add famotidine at bedtime if necessary. I will see patient in 6 months, sooner on as needed basis. Patient is agreeable to this plan and verbalizes understanding of instructions. He was given the opportunity to ask questions and all questions answered. Thank you for allowing me to participate in his care Medications: Changed From polyethylene glycol 3350 17 grams PO DAILY 510 grams 2RF To polyethylene glycol 3350 (Miralax) 17 grams PO DAILY PRN Refilled omeprazole 20 mg PO DAILY 90 caps 0RF 90 days Coding Level of Care Code Est Pt Level 3 (12725) Diagnoses Gastroesophageal reflux disease, unspecified whether esophagitis present K21.9 Esophagitis presence: esophagitis presence not specified Chronic superficial gastritis without bleeding K29.30 Chronicity: chronic Gastritis bleeding: without bleeding Gastritis type: superficial Time Spent (min) 30 Comment 20 minutes spent with patient and additional 10 minutes spent reviewing his records
[2023-06-05 12:07] VITALS: BP 143/76; PULSE 66; BMI 34.9
== END 2023-06-05 14:21 | disposition home or self-care (01) ==
PROVIDERS: PCP Nurse Practitioner Family; Visit Provider Nurse Practitioner Family
DX: K21.9 Gastro-esophageal reflux disease without esophagitis (principal); K29.30 Chronic superficial gastritis without bleeding
CPT/HCPCS: 99213

== ENCOUNTER → 2023-06-05 12:00 | Outpatient (BNVA) | payer BC, SELFPAY | PROVIDERS: PCP Nurse Practitioner Family; Visit Provider Nurse Practitioner Family ==

== ENCOUNTER 2023-10-11 10:50 | Outpatient (AMB) | payer BC, SELFPAY ==
--- NOTE | 2023-10-11 10:53 | MHC.PC.OV ---
Vital Signs 10/11/23 10:55 Height 5 ft 7 in Weight 219 lb BMI 34.3 BP 118/70 Blood Pressure Location Rt brachial Position Sitting Pulse 62 Pulse Source Pulse Oximeter Pulse Oximetry (%) 98 Oxygen Delivery Method Room Air Intake Visit Reasons: Annual PE Intake Note: Patient here for physical exam. pt would like to talk about anxiety which is effecting his sleep. Allergies No Known Allergies Allergy (Verified 10/11/23 11:06) Medication List - Last Reconciled 10/11/23 by HALIMA Mitchell ascorbate calcium (vitamin C) 500 mg PO DAILY atorvastatin 10 mg PO BEDTIME mecobalamin (vitamin B12) mcg PO omeprazole 20 mg PO DAILY 90 days polyethylene glycol 3350 (Miralax) 17 grams PO DAILY PRN Tobacco use date assessed: 10/11/23 Dental Screening Dental Screen Date: 10/11/23 Did you have a dental visit in the last 12 months?: No Did you have a dental problem in the last 6 months where you did not have access to dental care?: No Was dental information given to patient?: Patient has dentist HPI Annual PE HPI Details Pt is here for a PE. Will order labs. Pt c/o increased anxiety. He reports more frequent outbursts for the last 2 months. Will start buspirone 5mg bid. Pt reports difficulty sleeping as well. Will send low dose trazodone. Denies any SI and HI. Pt c/o constipation. Recommended OTC miralax. [facility] Medical History Elevated cholesterol GERD (gastroesophageal reflux disease) Sacral pain Surgical History History of esophagogastroduodenoscopy (EGD) History of surgical removal of pilonidal cyst Family History Mother Substance use disorder Social History Housing: Apartment Alcohol intake: current Alcohol intake frequency: holidays/special occasions only Patient Tobacco Use Status: Former Tobacco user Quit Date: quit off and on Current occupational status: employed Current occupation: [employer] Current occupational exposures/hazards: No Cognitive needs: No Hearing needs: No Vision needs: No Questionnaire PHQ-9 Over the last 2 weeks, how often have you been bothered by any of the following problems? 1. Little interest or pleasure in doing things: more than half the days 2. Feeling down, depressed, or hopeless: several days 3. Trouble falling or staying asleep, or sleeping too much: nearly every day 4. Feeling tired or having little energy: nearly every day 5. Poor appetite or overeating: nearly every day 6. Feeling bad about yourself - or that you are a failure or have let yourself or your family down: not at all 7. Trouble concentrating on things, such as reading the newspaper or watching television: not at all 8. Moving or speaking so slowly that other people could have noticed. Or the opposite - being so fidgety or restless that you have been moving around a lot more than usual: more than half the days 9. Thoughts that you would be better off or of hurting yourself in some way: not at all Total score: 14 Depression Screening Interpretation: Positive (will have BH reach out to pt.) Depression Screening Follow-up: Existing condition Depression Screening Done: Yes 85171 - PHQ-9 Billing: Yes Source: Developed by Drs. Nikita Galan, Gita Sen, Brarie Olmstead and colleagues, with an educational manny from [employer]. Thrive Questionnaire Date Thrive assessed: 10/11/23 I am a: Patient What is your living situation today?: I have a steady place to live Within the past 12 months, did the food you bought not last and you didn't have the money to get more?: Never true Within the past 12 months, did you worry whether your food would run out before you got money to buy more?: Never true Do you have trouble paying for medicines?: Yes Do you have trouble getting transportation to medical appointments?: No Do you have trouble paying your heating and electricity bill?: Yes Do you have trouble taking care of your child, family member or friend?: No Do you have trouble with day-to-day activities such as bathing, preparing meals, shopping, managing finances, etc.?: No Are you currently unemployed and looking for a job?: No Are you interested in more education?: Yes Currently or been in a relationship where the following occur: I choose not to answer this question THRIVE Score: 1 AUDIT C Alcohol Use Questionnaire (AUDIT-C) 1. How often do you have a drink containing alcohol?: Monthly or less 2. How many drinks containing alcohol do you have on a typical day when you are drinking?: 1 or 2 Total Score: 1 Score Reviewed/Action Taken: No VALDEZ-7 AMB Questionnaire VALDEZ-7 Date VALDEZ - 7 assessed: 10/11/23 Feeling nervous, anxious, or on edge: 2 = More than half the days Not being able to stop or control worryin = More than half the days Worrying too much about different things: 2 = More than half the days Trouble relaxin = Nearly every day Being so restless that it is hard to sit still: 3 = Nearly every day Becoming easily annoyed or irritable: 2 = More than half the days Feeling afraid as if something awful might happen: 0 = Not at all Total VALDEZ-7 score (0-4 normal; 5-9 mild; 10-14 moderate; 15-21 severe): 14 Source: Developed by Drs. Nikita Galan, Gita Sen, Barrie Olmstead and colleagues, with an educational manny from [employer]. VALDEZ-7 Assessment Billing VALDEZ-7 Assessment Tool: VALDEZ-7 Assessment 40250 Review of Systems Const Denies chills and Denies fever(s) Eyes Denies blurry vision ENT Denies vertigo, Denies dizziness and Denies sore throat Card Denies chest pain at rest, Denies chest pain with activity, Denies diaphoresis, Denies dyspnea and Denies dyspnea on exertion Resp Denies cough, Denies dyspnea, Denies dyspnea on exertion and Denies wheezing GI Denies abdominal pain, Denies melena, Denies hematochezia, Reports constipation, Denies diarrhea and Denies loose stools Denies hematuria Musc Denies numbness and Denies tingling Skin/Breast Denies lesions Neuro Denies vertigo, Denies dizziness, Denies numbness and Denies tingling Psych Reports anxiety, Denies depression, Denies homicidal ideation, Denies suicidal ideation and Denies other (substance abuse) Aller/Immun Denies wheezing Physical exam (Primary Care) Vital Signs: Last Vital Signs Pulse 62 10/11/23 10:55 BP 118/70 10/11/23 10:55 Pulse Ox 98 10/11/23 10:55 Oxygen Delivery Method Room Air 10/11/23 10:55 BMI result Body Mass Index 34.3 Tobacco/Smoking Status: Tobacco use Status Tobacco use date assessed 10/11/23 10/11/23 11:03 Patient Tobacco Use Status Former Tobacco user 10/11/23 10:56 Depression Screening Interpretation: Positive (will have BH reach out to pt.) Depression Screening Follow-up: Existing condition Thrive Assessment: Date of Thrive Assessment Date Thrive assessed 10/05/22 10/11/23 10:56 Currently or been in a relationship where the following occur: I choose not to answer this question Const General: cooperative Nutritional Appearance: obese Orientation/consciousness: patient oriented x3 HENMT Head: Yes normal to inspection, Yes normocephalic and Yes atraumatic Ears: TM's normal bilaterally Eyes General: appearance normal, both eyes and all related structures Alignment and Position: alignment normal and position normal Neck Neck: Yes normal visual inspection and Yes no lymphadenopathy Thyroid: Thyroid normal Resp Effort & Inspection: normal respiratory effort Auscultation: clear to auscultation bilaterally Cardio Rate: regular rate Rhythm: regular rhythm Heart sounds: S1 normal heart sound present, S2 normal heart sound present and no murmurs GI Palpation (GI): Soft to palpation and nontender Auscultation: normal bowel sounds Male General Exam: Yes normal external exam Penis: normal penis Scrotum: scrotum normal, testes descended bilaterally and no inguinal hernias Testes: no testicular mass Skin Rashes: no rashes Neuro General: patient oriented x3, moves all extremities, no focal motor deficits and deep tendon reflexes 2+ bilaterally Romberg Test: Negative Psych Appearance: grossly normal Mental Status: mental status grossly normal Speech and movement: Normal speech and movement present Affect: normal affect Attitude: cooperative Thought process: Normal thought process present Thought content: Normal thought content present Insight: Good insight present (Psych) Judgement: Good judgement present (Psych) Assessment and Plan Assessment & Plan (1) Physical exam: Code(s): Z00.00 - Encounter for general adult medical examination without abnormal findings Plan: Labs ordered (2) Anxiety: Code(s): F41.9 - Anxiety disorder, unspecified Plan: Starting buspirone (3) Insomnia: Code(s): G47.00 - Insomnia, unspecified Plan: Starting low-dose trazodone Plan The patient agreed to the use of a director biomedical engineering for this encounter. Scribed for HALIMA Salas by Mirlande Escobar director biomedical engineering, on 10/11/2023 at 11:15 EST. Medications: New trazodone 50 mg PO BEDTIME PRN 30 tabs 2RF sleep buspirone 5 mg PO BID 30 days 60 tabs 3RF Coding Level of Care Code Est Pt Prev Care 18-39y(39756) Diagnoses Physical exam Z00.00 Anxiety F41.9 Insomnia G47.00 Additional Codes VALDEZ-7 Assessment Billing - VALDEZ-7 Assessment Tool: VALDEZ-7 Assessment 06206 ([id number])
[2023-10-11 10:55] VITALS: BP 118/70; PULSE 62; O2SAT 98; BMI 34.3
== END 2023-10-11 11:32 | disposition home or self-care (01) ==
PROVIDERS: PCP Nurse Practitioner Family; Visit Provider Nurse Practitioner Family
DX: Z00.00 Encounter for general adult medical examination without abnormal findings (principal); F41.9 Anxiety disorder, unspecified; G47.00 Insomnia, unspecified
CPT/HCPCS: 99395

== ENCOUNTER 2023-10-11 12:39 | Outpatient (REF) | payer BC, SELFPAY ==
[2023-10-11 16:08] LABS: Appearance Urine Clear; Color Urine Yellow; Glucose Urine UA Negative (Negative); Leukocyte Esterase Urine Negative (Negative); Nitrite Urine Negative (Negative); Urine Blood Negative (Negative); Urine Ketones Negative (Negative); Urine Protein Negative (Neg-Trace)
[2023-10-11 16:26] LABS: MANUAL DIFF FLAG NO
[2023-10-11 16:29] LABS: Basophils Percent Auto 0.5 % (0-2); Eosinophils Absolute Auto 0.2 X10*3/uL (0.0-0.4); Eosinophils Percent Auto 2.6 % (0-4); Hematocrit 45.1 % (42.0-52.0); Imm Gran Abs Auto 0.02 X10*3/uL (0.00-0.03); Imm Gran Pct Auto 0.3 % (0.0-0.4); Lymphocytes Absolute Auto 2.5 X10*3/uL (1.2-4.9); Lymphocytes Percent Auto 33.2 % (20-40); Mean Corpuscular HGB Conc 33.3 g/dl (31.0-36.0); Mean Corpuscular Hemoglobin 27.6 pg (27.0-33.0); Mean Corpuscular Volume 82.9 fL (80.0-98.0); Mean Platelet Volume 11.2 fL (9.4-12.4); Monocytes Absolute Auto 0.6 X10*3/uL (0.1-1.2); Monocytes Percent Auto 8.4 % (2-11); Neutrophils Absolute Auto 4.1 x10*3/uL (2.0-8.3); Platelet Count 257 X10*3/uL (160-400); Red Blood Count 5.44 X10*6/uL (4.60-5.80); White Blood Count 7.4 X10*3/uL (4.8-10.8)
[2023-10-11 16:54] LABS: Alanine Aminotransferase 25 U/L (0-40); Albumin Level 4.3 g/dL (3.5-5.0); Alkaline Phosphatase 84 U/L (39-117); Anion Gap 10 (12-20); Aspartate Amino Transferase 21 U/L (5-37); Bilirubin Total 0.6 mg/dL (0.0-1.0); Blood Urea Nitrogen 15 mg/dL (9-16); Calcium 9.6 mg/dL (8.4-10.2); Carbon Dioxide 29 mmol/L (22-29); Chloride 105 mmol/L (96-108); Cholesterol 168 mg/dL (<200); Estimated Glomerular Filt Rate > 60; Glucose Fasting 84 mg/dL (60-99); HDL Cholesterol 43 mg/dL (>40); LDL Cholesterol Calculated 111 mg/dL (<100); Potassium 4.5 mmol/L (3.3-5.1); Sodium 139 mmol/L (135-145); Total Protein 7.7 g/dL (6.5-8.0); Triglycerides 74 mg/dL (<150)
[2023-10-11 17:10] LABS: TSH reflex Free T4 1.88 uIU/mL (0.32-4.0)
== END 2023-10-11 12:40 | disposition home or self-care (01) ==
LOC: HO.HMGCLDS 12:39
PROVIDERS: PCP Nurse Practitioner Family; Visit Provider Nurse Practitioner Family
DX: E78.5 Hyperlipidemia, unspecified (principal)
CPT/HCPCS: 36415; 80053; 80061; 81003; 84443; 85025

== ENCOUNTER 2023-12-07 11:25 | Outpatient (AMB) | payer BC, SELFPAY ==
--- NOTE | 2023-12-07 11:35 | MHC.OFFVIS ---
Vital Signs 12/07/23 11:40 Height 5 ft 7 in Weight 220 lb 0.341 oz BMI 34.5 BP 126/70 Blood Pressure Location Rt brachial Position Sitting Pulse 54 Pulse Source Pulse Oximeter Pulse Oximetry (%) 99 Oxygen Delivery Method Room Air Intake Visit Reasons: Gastroesophageal reflux disease (GERD) Intake Note: Ambrocio presents in office today for a scheduled FUV. CC; Pt was rx'd omeprazole at their last visit. Pt reports that they have been having great success on the medication and have no complications or concerns. P[employer] Penc[employer] Dipper Required: No Allergies No Known Allergies Allergy (Verified 12/07/23 11:40) HPI HPI Gastroesophageal reflux disease (GERD): Details: LAST VISIT GERD (gastroesophageal reflux disease) Gastritis Plan Results are upper endoscopy discussed with patient. No esophagitis or Ron's found. Mild chronic inactive gastritis and mild erosion seen most likely from NSAIDs use. Patient will avoid NSAIDs altogether. Will continue with omeprazole daily. Avoiding dietary triggers in late night snacking discussed with patient as well. Patient will try to also lose weight. Patient will use MiraLax to help her move his bowels. He will call the office if he will continue to have symptoms. We will add famotidine at bedtime if necessary. I will see patient in 6 months, sooner on as needed basis. Patient is agreeable to this plan and verbalizes understanding of instructions. He was given the opportunity to ask questions and all questions answered. ? Thank you for allowing me to participate in his care Medications Changed Changed From polyethylene glycol 3350 17 grams PO DAILY 510 grams 2RF Changed To polyethylene glycol 3350 (Miralax) 17 grams PO DAILY PRN Refilled omeprazole 20 mg PO DAILY 90 caps 0RF 90 days TODAY'S VISIT Patient is here today for follow-up. Patient reports that since he started taking omeprazole he has been feeling well. Patient also tries to avoid dietary triggers. Does not eat late at night. Patient has been wanting to lose weight. No recent weight gain. Patient will be changing jobs and index couple months. Patient denies any melena, hematochezia. Occasional constipation. Patient denies any other GI concerning symptoms. [facility] Medical History Elevated cholesterol GERD (gastroesophageal reflux disease) Sacral pain Surgical History History of esophagogastroduodenoscopy (EGD) History of surgical removal of pilonidal cyst Family History Mother Substance use disorder Social History Housing: Apartment Alcohol intake: current Alcohol intake frequency: holidays/special occasions only Patient Tobacco Use Status: Former Tobacco user Current occupational status: employed Current occupation: [employer] Current occupational exposures/hazards: No Cognitive needs: No Hearing needs: No Vision needs: No Review of Systems Const Denies weight gain and Denies weight loss ENT Reports no additional complaints, Denies dysphagia and Denies odynophagia Card Reports no additional complaints Resp Reports no additional complaints GI Denies abdominal pain, Denies belching, Denies melena, Denies bloating, Reports constipation (Occasional), Denies dysphagia, Denies excessive flatus, Denies dyspepsia, Reports heartburn (Occasional, improved), Denies diarrhea, Denies loose stools, Denies nausea, Denies odynophagia and Denies vomiting Reports no additional complaints Musc Reports no additional complaints Neuro Reports no additional complaints Psych Reports no additional complaints Endo Reports no additional complaints Physical Exam Vital Signs: Last Vital Signs Pulse 54 12/07/23 11:40 BP 126/70 12/07/23 11:40 Pulse Ox 99 12/07/23 11:40 Oxygen Delivery Method Room Air 12/07/23 11:40 BMI result Body Mass Index 34.5 Const General: healthy appearing, no acute distress and well developed Nutritional Appearance: well nourished Orientation/consciousness: patient oriented x3 Resp Effort & Inspection: normal respiratory effort, able to speak in complete sentences, no tracheal deviation and symmetric chest movement Auscultation: clear to auscultation bilaterally Cardio Rate: regular rate GI Inspection: Yes normal to inspection and No distended Palpation (GI): Soft to palpation, not firm, nontender and No hepatosplenomegaly present Auscultation: normal bowel sounds General: Yes no CVA tenderness Back/Spine/Pelvis Back: no CVA tenderness Skin General skin exam: elasticity normal, turgor normal and dry skin Neuro General: patient oriented x3 Psych Appearance: grossly normal Mental Status: mental status grossly normal Assessment & Plan Assessment & Plan (1) GERD (gastroesophageal reflux disease): Code(s): K21.9 - Gastro-esophageal reflux disease without esophagitis Category: Medical Qualifiers: Esophagitis presence: esophagitis presence not specified Qualified Code(s): K21.9 - Gastro-esophageal reflux disease without esophagitis Plan Avoid dietary triggers and late night snacking. Patient can start taking MiraLax to help with bowel movements. Staying upright for minimum 3 hours after meals discussed with patient. Continue omeprazole daily. Patient tried stopping for few days, however reports that his reflux was coming back. Patient will return in 3 months, sooner on as needed basis. He is agreeable to this plan and verbalizes understanding of instructions. He was given the opportunity to ask questions and all questions answered. Thank you for allowing me to participate in his care Medications: New polyethylene glycol 3350 (Miralax) 17 grams PO DAILY PRN 510 grams 2RF constipation Refilled omeprazole 20 mg PO DAILY 90 days 90 caps 2RF Coding Level of Care Code Est Pt Level 3 (16315) Diagnoses Gastroesophageal reflux disease, unspecified whether esophagitis present K21.9 Esophagitis presence: esophagitis presence not specified Time Spent (min) 25 Comment 15 minutes spent with patient and additional 10 minutes spent reviewing his records
[2023-12-07 11:40] VITALS: BP 126/70; PULSE 54; O2SAT 99; BMI 34.5
== END 2023-12-07 11:58 | disposition home or self-care (01) ==
PROVIDERS: PCP Nurse Practitioner Family; Visit Provider Nurse Practitioner Family
DX: K21.9 Gastro-esophageal reflux disease without esophagitis (principal)
CPT/HCPCS: 99213

== ENCOUNTER → 2023-12-07 11:25 | Outpatient (BNVA) | payer BC, SELFPAY | PROVIDERS: PCP Nurse Practitioner Family; Visit Provider Nurse Practitioner Family ==

== ENCOUNTER 2024-01-10 11:24 | Outpatient (AMB) | payer BC, SELFPAY ==
--- NOTE | 2024-01-10 11:28 | MHC.PC.OV ---
Vital Signs 01/10/24 11:31 Height 5 ft 7 in Weight 214 lb BMI 33.5 BP 124/80 Blood Pressure Location Rt brachial Position Sitting Pulse 103 H Pulse Source Pulse Oximeter Pulse Oximetry (%) 96 Oxygen Delivery Method Room Air Intake Visit Reasons: 3 month follow up Intake Note: Patient here to f/u on new anxiety med, he would also like to talk about GI issues he has been having going on for about 2 weeks. Allergies No Known Allergies Allergy (Verified 01/10/24 11:32) Medication List - Last Reconciled 01/10/24 by HALIMA Mitchell ascorbate calcium (vitamin C) 500 mg PO DAILY atorvastatin 10 mg PO BEDTIME buspirone 5 mg PO BID 30 days mecobalamin (vitamin B12) mcg PO omeprazole 40 mg PO DAILY 90 days polyethylene glycol 3350 (Miralax) 17 grams PO DAILY PRN trazodone 50 mg PO BEDTIME PRN Tobacco use date assessed: 10/11/23 Dental Screening Dental Screen Date: 10/11/23 HPI 3 month follow up HPI Details Anxiety: Pt reports that this is well controlled with buspirone. Denies any SI and HI. Pt reports abdominal discomfort, diarrhea, and GERD symptoms. He knows to stop the miralax when he has diarrrhea. Denies ay fevers, chills, blood in stool. He was prescribed omeprazole 20mg by GI. Will increase this to 40mg. Pt reports increased gas. Will send simethicone. Pt will be following up with GI in 2 months. [facility] Medical History Elevated cholesterol GERD (gastroesophageal reflux disease) Sacral pain Surgical History History of esophagogastroduodenoscopy (EGD) History of surgical removal of pilonidal cyst Family History Mother Substance use disorder Social History Housing: Apartment Alcohol intake: current Alcohol intake frequency: holidays/special occasions only Patient Tobacco Use Status: Former Tobacco user Current occupational status: employed Current occupation: [employer] Current occupational exposures/hazards: No Cognitive needs: No Hearing needs: No Vision needs: No Questionnaire PHQ-9 Over the last 2 weeks, how often have you been bothered by any of the following problems? 1. Little interest or pleasure in doing things: several days 2. Feeling down, depressed, or hopeless: not at all 3. Trouble falling or staying asleep, or sleeping too much: nearly every day 4. Feeling tired or having little energy: more than half the days 5. Poor appetite or overeating: more than half the days 6. Feeling bad about yourself - or that you are a failure or have let yourself or your family down: not at all 7. Trouble concentrating on things, such as reading the newspaper or watching television: several days 8. Moving or speaking so slowly that other people could have noticed. Or the opposite - being so fidgety or restless that you have been moving around a lot more than usual: not at all 9. Thoughts that you would be better off or of hurting yourself in some way: not at all Total score: 9 Depression Screening Interpretation: Positive (pt reports buspirone is working well, starting new job in the future as well) Depression Screening Follow-up: Existing condition Depression Screening Done: Yes Source: Developed by Drs. Nikita Galan, Gita Sen, Barrie Olmstead and colleagues, with an educational manny from [employer]. Thrive Questionnaire Date Thrive assessed: 01/08/24 I am a: Patient What is your living situation today?: I have a steady place to live Within the past 12 months, did the food you bought not last and you didn't have the money to get more?: Sometimes True Within the past 12 months, did you worry whether your food would run out before you got money to buy more?: Often true Do you have trouble paying for medicines?: Yes Do you have trouble getting transportation to medical appointments?: No Do you have trouble paying your heating and electricity bill?: Yes Do you have trouble taking care of your child, family member or friend?: No Do you have trouble with day-to-day activities such as bathing, preparing meals, shopping, managing finances, etc.?: No Are you currently unemployed and looking for a job?: No Are you interested in more education?: Yes Please select the resources that you would like help with: Paying for medicine and Utilities Currently or been in a relationship where the following occur: No concerns reported THRIVE Score: 3 AUDIT C Alcohol Use Questionnaire (AUDIT-C) 1. How often do you have a drink containing alcohol?: Monthly or less 2. How many drinks containing alcohol do you have on a typical day when you are drinking?: 3 or 4 3. How often do you have six or more drinks on one occasion?: Never Total Score: 2 VALDEZ-7 AMB Questionnaire VALDEZ-7 Date VALDEZ - 7 assessed: 10/11/23 Feeling nervous, anxious, or on edge: 1 = Several days Not being able to stop or control worryin = Several days Worrying too much about different things: 1 = Several days Trouble relaxin = Nearly every day Being so restless that it is hard to sit still: 1 = Several days Becoming easily annoyed or irritable: 0 = Not at all Feeling afraid as if something awful might happen: 0 = Not at all Total VALDEZ-7 score (0-4 normal; 5-9 mild; 10-14 moderate; 15-21 severe): 7 Source: Developed by Drs. Nikita Galan, Gita Sen, Barrie Olmstead and colleagues, with an educational manny from [employer]. Review of Systems Const Reports as per HPI Physical exam (Primary Care) Vital Signs: Last Vital Signs Pulse 103 H 01/10/24 11:31 BP 124/80 01/10/24 11:31 Pulse Ox 96 01/10/24 11:31 Oxygen Delivery Method Room Air 01/10/24 11:31 BMI result Body Mass Index 33.5 Tobacco/Smoking Status: Tobacco use Status Tobacco use date assessed 10/11/23 01/10/24 11:28 Patient Tobacco Use Status Former Tobacco user 01/10/24 11:28 PHQ-9: PHQ-9 Score PHQ-9: Total score 9 01/10/24 11:28 Depression Screening Interpretation: Positive (pt reports buspirone is working well, starting new job in the future as well) Depression Screening Follow-up: Existing condition Thrive Assessment: Date of Thrive Assessment Date Thrive assessed 01/08/24 01/10/24 11:28 Currently or been in a relationship where the following occur: No concerns reported Const General: cooperative Orientation/consciousness: patient oriented x3 Resp Effort & Inspection: normal respiratory effort Auscultation: clear to auscultation bilaterally Cardio Rate: regular rate Rhythm: regular rhythm Heart sounds: S1 normal heart sound present and S2 normal heart sound present GI Other: no tenderness with palpation Auscultation: normal bowel sounds Neuro General: patient oriented x3 Psych Appearance: grossly normal Mental Status: mental status grossly normal Speech and movement: Normal speech and movement present Affect: normal affect Attitude: cooperative Thought process: Normal thought process present Thought content: Normal thought content present Insight: Good insight present (Psych) Judgement: Good judgement present (Psych) Assessment and Plan Assessment & Plan (1) Anxiety: Code(s): F41.9 - Anxiety disorder, unspecified (2) Chronic GERD: Code(s): K21.9 - Gastro-esophageal reflux disease without esophagitis Plan: omeprazole 40mg (3) Gas pain: Code(s): R14.1 - Gas pain Plan: simethacon sent Plan The patient agreed to the use of a emergency medical technician basic for this encounter. Scribed for LINETTE Salas- by Mirlande Escobar emergency medical technician basic, on 01/10/2024 at 11:50 EST. Medications: New simethicone 250 mg PO DAILY 30 days PRN 30 caps 0RF abdominal distention/gas Changed From omeprazole 20 mg PO DAILY 90 days 90 caps 2RF To omeprazole 40 mg PO DAILY 90 days 90 caps 2RF Coding Level of Care Code Est Pt Level 3 (73972) Diagnoses Anxiety F41.9 Chronic GERD K21.9 Gas pain R14.1
[2024-01-10 11:31] VITALS: BP 124/80; PULSE 103; O2SAT 96; BMI 33.5
== END 2024-01-10 12:48 | disposition home or self-care (01) ==
PROVIDERS: PCP Nurse Practitioner Family; Visit Provider Nurse Practitioner Family
DX: F41.9 Anxiety disorder, unspecified (principal); K21.9 Gastro-esophageal reflux disease without esophagitis; R14.1 Gas pain
CPT/HCPCS: 99213

== ENCOUNTER 2024-03-15 10:11 | Outpatient (AMB) | payer BC, SELFPAY ==
[2024-03-15 10:19] VITALS: BP 134/86; PULSE 60; O2SAT 99; BMI 34.7
--- NOTE | 2024-03-15 10:19 | A.OFFVIS_ITS ---
Vital Signs 03/15/24 10:19 Height 5 ft 7 in Weight 221 lb 5.506 oz BMI 34.7 BP 134/86 Blood Pressure Location Rt brachial Position Sitting Pulse 60 Pulse Source Pulse Oximeter Pulse Oximetry (%) 99 Oxygen Delivery Method Room Air Intake Visit Reasons: 3 months follow up Intake Note: Ambrocio presents in office today for a scheduled 3 mos FUV. CC; Pt was rx'd miralax at their last visit. Pt had seen their PCP back in December and had their omeprazole switched to 40 mg due to severity of sx. Pt states that they have been doing better since their dose increase, however; they have been experiencing moderate morning nausea and occasional vomiting. Pt would be open to changing PPIs. 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 Patient can start taking MiraLax to help with bowel movements. Staying upright for minimum 3 hours after meals discussed with patient. Continue omeprazole daily. Patient tried stopping for few days, however reports that his reflux was coming back. Patient will return in 3 months, sooner on as needed basis. He is agreeable to this plan and verbalizes understanding of instructions. He was given the opportunity to ask questions and all questions answered. ? Thank you for allowing me to participate in his care Medications New polyethylene glycol 3350 (Miralax) 17 grams PO DAILY PRN 510 grams 2RF constipation Refilled omeprazole 20 mg PO DAILY 90 days 90 caps 2RF TODAY'S VISIT: Patient is here today for follow-up. Patient reports that currently he has been doing well, however he had an episode that lasted about 2 weeks in December when his symptoms of epigastric pain intensified. Patient states that he changed new job and was stressed out. Patient did not changed his diet. Patient did not travel anywhere. Seen PCP who increase his omeprazole to 40 mg daily. Since then patient states that he has been feeling better. However he does admit that occasionally in the morning he will wake up feeling nauseous. Patient states that he does not eat late at night. His last meal is around 630 p.m. patient denies dyspepsia, dysphagia or odynophagia. Denies any melena, hematochezia. [facility] Medical History Elevated cholesterol GERD (gastroesophageal reflux disease) Sacral pain Surgical History History of esophagogastroduodenoscopy (EGD) History of surgical removal of pilonidal cyst Family History Mother Substance use disorder Social History Housing: Apartment Alcohol intake: current Alcohol intake frequency: holidays/special occasions only Patient Tobacco Use Status: Former Tobacco user Current occupational status: employed Current occupation: [employer] Current occupational exposures/hazards: No Cognitive needs: No Hearing needs: No Vision needs: No Review of Systems Const Denies weight gain and Denies weight loss ENT Reports no additional complaints, Denies dysphagia and Denies odynophagia Card Reports no additional complaints Resp Reports no additional complaints GI Denies abdominal pain, Denies belching, Denies melena, Denies bloating, Denies change in bowel habits, Denies dysphagia, Denies excessive flatus, Denies dyspepsia, Reports heartburn, Denies diarrhea, Denies loose stools, Reports nausea, Denies odynophagia and Denies vomiting Reports no additional complaints Musc Reports no additional complaints Neuro Reports no additional complaints Psych Reports no additional complaints Endo Reports no additional complaints Physical Exam Vital Signs: Last Vital Signs Pulse 60 03/15/24 10:19 BP 134/86 03/15/24 10:19 Pulse Ox 99 03/15/24 10:19 Oxygen Delivery Method Room Air 03/15/24 10:19 BMI result Body Mass Index 34.7 Const General: healthy appearing and no acute distress Nutritional Appearance: obese Orientation/consciousness: patient oriented x3 Resp Effort & Inspection: normal respiratory effort, able to speak in complete sentences, no tracheal deviation and symmetric chest movement Auscultation: clear to auscultation bilaterally Cardio Rate: regular rate GI Inspection: Yes normal to inspection, No distended and Yes obesity Palpation (GI): Soft to palpation, not firm, nontender and No hepatosplenomegaly present Auscultation: normal bowel sounds General: Yes no CVA tenderness Back/Spine/Pelvis Back: no CVA tenderness Skin General skin exam: elasticity normal, turgor normal and dry skin Neuro General: patient oriented x3 Psych Appearance: grossly normal Mental Status: mental status grossly normal Assessment & Plan Assessment & Plan (1) GERD (gastroesophageal reflux disease): Code(s): K21.9 - Gastro-esophageal reflux disease without esophagitis Category: Medical Qualifiers: Esophagitis presence: esophagitis presence not specified Qualified Code(s): K21.9 - Gastro-esophageal reflux disease without esophagitis (2) Nausea: Code(s): R11.0 - Nausea Plan Patient will continue omeprazole daily. Avoid dietary triggers and late night snacking. Staying upright for minimum 3 hours after meals discussed with patient. Patient will start taking famotidine at bedtime. Patient will increase fluid intake and activity to promote better bowel motility. Continue simethicone on as needed basis. Avoid gassy food. Avoid carbs. Patient will follow-up in 6 months, sooner on as needed basis. He is agreeable to this plan and verbalizes understanding of instructions. He was given the opportunity to ask questions and all questions answered. Thank you for allowing me to participate in his care Medications: New Pepcid (famotidine) 20 mg PO BEDTIME 30 tabs 3RF NS K21.9 - Gastro-esophageal reflux disease without esophagitis Coding Level of Care Code Est Pt Level 3 (83632) Diagnoses Gastroesophageal reflux disease, unspecified whether esophagitis present K21.9 Esophagitis presence: esophagitis presence not specified Nausea R11.0 Time Spent (min) 25 Comment 15 minutes spent with patient and additional 10 minutes spent reviewing his records
== END 2024-03-15 10:55 | disposition home or self-care (01) ==
PROVIDERS: PCP Nurse Practitioner Family; Visit Provider Nurse Practitioner Family
DX: K21.9 Gastro-esophageal reflux disease without esophagitis (principal); R11.0 Nausea
CPT/HCPCS: 99213

== ENCOUNTER → 2024-03-15 10:11 | Outpatient (BNVA) | payer BC, SELFPAY | PROVIDERS: PCP Nurse Practitioner Family; Visit Provider Nurse Practitioner Family ==

== ENCOUNTER 2024-09-13 10:09 | Outpatient (REF) | payer BC, SELFPAY ==
[2024-09-16 22:28] LABS: Class Almond 0; Class Brazil Nut 0; Class Cashew 0; Class Codfish 0; Class Cow's Milk 0; Class Egg white 0; Class Hazelnut 0; Class Macadamia Nut 0; Class Peanut 0; Class Salmon 0; Class Scallop 0; Class Sesame Seed 0; Class Shrimp 0; Class Soybean 0; Class Tuna 0; Class Walnut 0; Class Wheat 0; F001-IgE Egg White <0.10 kU/L; F002-IgE Milk <0.10 kU/L; F003-IgE Codfish <0.10 kU/L; F004-IgE Wheat <0.10 kU/L; F010-IgE Sesame Seed <0.10 kU/L; F013-IgE Peanut <0.10 kU/L; F014-IgE Soybean <0.10 kU/L; F017-IgE Hazelnut (Filbert) <0.10 kU/L; F018-IgE Brazil Nut <0.10 kU/L; F020-IgE Almond <0.10 kU/L; F024-IgE Shrimp <0.10 kU/L; F040-IgE Tuna <0.10 kU/L; F041 IgE Salmon <0.10 kU/L; F202-IgE Cashew Nut <0.10 kU/L; F256-IgE Walnut <0.10 kU/L; F338-IgE Scallop <0.10 kU/L; F345-IgE Macadmia Nut <0.10 kU/L
== END 2024-09-13 10:10 | disposition home or self-care (01) ==
LOC: HO.LAB 10:09
PROVIDERS: PCP Nurse Practitioner Family; Visit Provider Nurse Practitioner Family
DX: K21.9 Gastro-esophageal reflux disease without esophagitis (principal); R11.0 Nausea; Z91.09 Other allergy status, other than to drugs and biological substances
CPT/HCPCS: 36415; 86003

== ENCOUNTER 2024-09-13 10:09 | Outpatient (AMB) | payer BC, SELFPAY ==
--- NOTE | 2024-09-13 10:13 | MHC.OFFVIS ---
Vital Signs 09/13/24 10:14 Height 5 ft 7 in Weight 227 lb 8.273 oz BMI 35.6 BP 140/74 H Blood Pressure Location Rt brachial Position Sitting Pulse 68 Pulse Source Pulse Oximeter Pulse Oximetry (%) 98 Oxygen Delivery Method Room Air Intake Visit Reasons: 6 mnth follow up Intake Note: ESTABLISHED PATIENT for GERD mgmt. Chief Complaint; C/O AM N+V, reflux persistence. Pt reports however that tx has seemingly been effective. Pt reports overall improvement through the rest of the day on average. Fecal abn have seemingly returned to normal per pt. No additional concerns at this time. 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 Avoid dietary triggers and late night snacking. Staying upright for minimum 3 hours after meals discussed with patient. Patient will start taking famotidine at bedtime. Patient will increase fluid intake and activity to promote better bowel motility. Continue simethicone on as needed basis. Avoid gassy food. Avoid carbs. Patient will follow-up in 6 months, sooner on as needed basis. He is agreeable to this plan and verbalizes understanding of instructions. He was given the opportunity to ask questions and all questions answered. ? Thank you for allowing me to participate in his care Medications New Pepcid (famotidine) 20 mg PO BEDTIME 30 tabs 3RF NS K21.9 TODAY'S VISIT Patient is he for follow-up. Patient reports that he has been doing better since he started taking famotidine at bedtime, however he continues to wake up almost every morning feeling nauseous with phlegm coming up, sometimes vomiting. Patient does not eat late at night. His last meal is at 18:30. Patient is unsure if he has any allergies, however he states that his mom and some his family members are suffering from seasonal allergies. Patient denies dyspepsia, dysphagia or odynophagia. Continues to take omeprazole in the morning. Moving his bowels without any issues. Patient is trying to lose weight, going to the gym. States that his favorite food is bread and pasta. [facility] Medical History Elevated cholesterol GERD (gastroesophageal reflux disease) Sacral pain Surgical History History of esophagogastroduodenoscopy (EGD) History of surgical removal of pilonidal cyst Family History Mother Substance use disorder Social History Housing: Apartment Alcohol intake: current Alcohol intake frequency: holidays/special occasions only Patient Tobacco Use Status: Former Tobacco user Current occupational status: employed Current occupation: [employer] Current occupational exposures/hazards: No Cognitive needs: No Hearing needs: No Vision needs: No Review of Systems Const Denies weight gain and Denies weight loss ENT Reports no additional complaints, Denies dysphagia and Denies odynophagia Card Reports no additional complaints Resp Reports no additional complaints GI Denies abdominal pain, Denies belching, Denies melena, Denies bloating, Denies change in bowel habits, Denies dysphagia, Denies excessive flatus, Denies dyspepsia, Reports heartburn, Denies diarrhea, Denies loose stools, Reports nausea, Denies odynophagia and Denies vomiting Reports no additional complaints Musc Reports no additional complaints Neuro Reports no additional complaints Psych Reports no additional complaints Endo Reports no additional complaints Physical Exam Vital Signs: Last Vital Signs Pulse 68 09/13/24 10:14 BP 140/74 H 09/13/24 10:14 Pulse Ox 98 09/13/24 10:14 Oxygen Delivery Method Room Air 09/13/24 10:14 BMI result Body Mass Index 35.6 Const General: healthy appearing and no acute distress Nutritional Appearance: obese Orientation/consciousness: patient oriented x3 Resp Effort & Inspection: normal respiratory effort, able to speak in complete sentences, no tracheal deviation and symmetric chest movement Auscultation: clear to auscultation bilaterally Cardio Rate: regular rate GI Inspection: Yes normal to inspection, No distended and Yes obesity Palpation (GI): Soft to palpation, not firm, nontender and No hepatosplenomegaly present Auscultation: normal bowel sounds General: Yes no CVA tenderness Back/Spine/Pelvis Back: no CVA tenderness Skin General skin exam: elasticity normal, turgor normal and dry skin Neuro General: patient oriented x3 Psych Appearance: grossly normal Mental Status: mental status grossly normal Assessment & Plan Assessment & Plan (1) GERD (gastroesophageal reflux disease): Code(s): K21.9 - Gastro-esophageal reflux disease without esophagitis Category: Medical Qualifiers: Esophagitis presence: esophagitis presence not specified Qualified Code(s): K21.9 - Gastro-esophageal reflux disease without esophagitis (2) Nausea: Code(s): R11.0 - Nausea Plan Patient will stop taking famotidine at night time and we will start him on sucralfate. Avoid dietary triggers in late night snacking. Staying upright for min 3 hours after meals discussed with patient. Patient will continue omeprazole. Discussed with patient low FODMAP diet. He is trying to lose weight, avoid carbs, low fat and a high-protein diet recommended. Will send him for last allergen, family history of seasonal allergies. Patient denies any postnasal drip, however waking up with phlegm in his throat that is causing him to be nauseous and sometimes vomiting. 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 Patient will follow-up in 6 months, sooner on as needed basis. He is agreeable to this plan and verbalizes understanding of instructions. He was given the opportunity to ask questions and all questions answered. Thank you for allowing me to participate in his care Orders: Orders Rast Allergen 09/13/24 K21.9 - Gastro-esophageal reflux disease without esophagitis Medications: New sucralfate 1 g PO BEDTIME 90 tabs 3RF R19.7 - Diarrhea, unspecified Refilled omeprazole 40 mg PO DAILY 90 caps 2RF 90 days Discontinued trazodone Discontinued Reason: Patient no longer taking 50 mg PO BEDTIME PRN 30 tabs 2RF sleep Coding Level of Care Code Est Pt Level 3 (71780) Diagnoses Gastroesophageal reflux disease, unspecified whether esophagitis present K21.9 Esophagitis presence: esophagitis presence not specified Nausea R11.0 Time Spent (min) 30 Comment 20 minutes spent with patient and additional 10 minutes spent reviewing his records
[2024-09-13 10:14] VITALS: BP 140/74; PULSE 68; O2SAT 98; BMI 35.6
== END 2024-09-13 10:41 | disposition home or self-care (01) ==
LOC: HO.HGI 10:10
PROVIDERS: PCP Nurse Practitioner Family; Visit Provider Nurse Practitioner Family
DX: K21.9 Gastro-esophageal reflux disease without esophagitis (principal); R11.0 Nausea
CPT/HCPCS: 99213

== ENCOUNTER 2024-10-10 12:44 | Outpatient (REF) | payer BC, SELFPAY | END 2024-10-10 12:45 | disposition home or self-care (01) | LOC: HO.LAB 12:44 | PROVIDERS: Visit Provider Nurse Practitioner Family | DX: Z13.89 Encounter for screening for other disorder (principal) | CPT/HCPCS: 36415; 86003 ==

== ENCOUNTER 2024-11-06 12:48 | Outpatient (AMB) | payer BC, SELFPAY ==
[2024-11-06 12:50] VITALS: BP 120/76; PULSE 72; RESP 18; O2SAT 98; BMI 35.7
--- NOTE | 2024-11-06 12:50 | MHC.PC.OV ---
Vital Signs 11/06/24 12:50 Height 5 ft 7 in Weight 228 lb BMI 35.7 BP 120/76 Blood Pressure Location Lt brachial Position Sitting Respiration 18 Pulse 72 Pulse Source Pulse Oximeter Pulse Oximetry (%) 98 Oxygen Delivery Method Room Air Intake Visit Reasons: Annual PE Intake Note: Pt is here today for PE. Pt states that last year he was tested positive for Covid and ever since then he has been having nasal congestion and dry cough. Allergies No Known Allergies Allergy (Verified 11/06/24 12:54) Medication List - Last Reconciled 11/06/24 by LINETTE Mitchell- ascorbate calcium (vitamin C) 500 mg PO DAILY atorvastatin 10 mg PO BEDTIME buspirone 5 mg PO BID 30 days mecobalamin (vitamin B12) mcg PO omeprazole 40 mg PO DAILY 90 days Pepcid (famotidine) 20 mg PO BEDTIME NS polyethylene glycol 3350 (Miralax) 17 grams PO DAILY PRN simethicone 250 mg PO DAILY PRN 30 days sucralfate 1 g PO BEDTIME Tobacco use date assessed: 11/06/24 Dental Screening Dental Screen Date: 11/06/24 Did you have a dental visit in the last 12 months?: Yes Did you have a dental problem in the last 6 months where you did not have access to dental care?: No Was dental information given to patient?: Patient has dentist HPI Annual PE HPI Details History of Present Illness The patient is a 29-year-old male presenting for a routine physical examination and a discussion concerning the utilization of weight loss medication as a component of his weight management strategy. He has commenced an exercise routine, achieving up to one and a half miles on a treadmill each day. The patient is aware of the importance of dietary changes and plans to work on his nutritional intake. He has expressed interest in potential pharmacological interventions for weight loss and may consult his insurance provider to explore coverage options for such medications. He denies any acute symptoms, specifically noting the absence of chest pain, respiratory difficulties, gastrointestinal distress, or alterations in bowel habits. He currently seeks management for his acid reflux condition through a safety patrol officer, with aspirations that dietary improvements may contribute positively to his management. His mental health assessment reveals no present concerns, with a denial of any ideations of self-harm or harm to others. Health Maintenance - Discussion and promotion of dietary changes for weight management and potential improvement of acid reflux symptoms. - Encouragement to engage in regular aerobic exercise. - Recommendation to consult insurance provider regarding coverage for weight loss medications. Social History - Engages in regular physical activity, including treadmill walking of up to 1.5 miles per day. - Intends to incorporate dietary changes to complement exercise for effective weight management. Review of Systems - Cardiovascular: Denies chest pain or dyspnea. - Gastrointestinal: Denies abdominal pain, constipation, diarrhea, or blood in stool. - Genitourinary: Denies any urinary symptoms. - Psychiatric: Denies suicidal or homicidal ideation. Physical Exam General: Cooperative, healthy appearing, comfortable, no acute distress and well developed, obese Orientation: Patient oriented x3 Limitations: No limitations Head: Normal to inspection Ears: Hearing grossly normal bilaterally Nose: Normal external nose present Face and sinus: Normal facial exam Eyes: Appearance normal, both eyes and all related structures Neck: Normal visual inspection and Yes full ROM Respiratory: Normal respiratory effort and able to speak in complete sentences. Clear to auscultation bilaterally Cardiovascular: Regular rate and rhythm. Normal S1 and S2 GI: Normal to inspection. Soft to palpation and nontender Skin: No rashes or lesions noted Neuro: Patient oriented x3 Extremities: Normal to inspection Results Plan Given the patient's interest in weight loss medications, I underscored the importance of lifestyle modifications, with particular focus on dietary changes and exercise, as cornerstone strategies for weight management. The patient should inquire with his insurer about potential medication coverage. He is advised to persist with his exercise routine and make concerted efforts to alter his diet, which could also positively impact his acid reflux condition. Ongoing consultation with his safety patrol officer is recommended for managing his acid reflux symptoms. No acute concerns are noted during this visit. Discussion Notes During our discussion, I addressed the patient?s inquiries concerning weight loss medications, emphasizing the pivotal role of dietary changes and regular exercise in managing weight. I recommended he seek information from his insurer about medication coverage. We discussed that lifestyle modifications could also bring about potential improvements in his acid reflux symptoms. The patient demonstrated an understanding of the need to remain focused on diet and exercise, and I provided reassurance regarding his current health status. Patient Instructions - Maintain current exercise regimen of walking on the treadmill. - Work on incorporating dietary changes to support weight loss efforts. - Contact your insurance provider to inquire about coverage for weight loss medications. - Continue monitoring symptoms related to acid reflux and consult with your safety patrol officer as necessary. [facility] Medical History Elevated cholesterol GERD (gastroesophageal reflux disease) Sacral pain Surgical History History of esophagogastroduodenoscopy (EGD) History of surgical removal of pilonidal cyst Family History Mother Substance use disorder Social History Housing: Apartment Alcohol intake: current Alcohol intake frequency: holidays/special occasions only Patient Tobacco Use Status: Former Tobacco user e-Cigarette/Vaping Use: Never Used service: No Current occupational status: employed Current occupation: [employer] Current occupational exposures/hazards: No Cognitive needs: No Hearing needs: No Vision needs: No Questionnaire PHQ-9 Over the last 2 weeks, how often have you been bothered by any of the following problems? 1. Little interest or pleasure in doing things: not at all 2. Feeling down, depressed, or hopeless: not at all 3. Trouble falling or staying asleep, or sleeping too much: not at all 4. Feeling tired or having little energy: not at all 5. Poor appetite or overeating: more than half the days 6. Feeling bad about yourself - or that you are a failure or have let yourself or your family down: not at all 7. Trouble concentrating on things, such as reading the newspaper or watching television: not at all 8. Moving or speaking so slowly that other people could have noticed. Or the opposite - being so fidgety or restless that you have been moving around a lot more than usual: not at all 9. Thoughts that you would be better off or of hurting yourself in some way: not at all Total score: 2 Depression Screening Interpretation: Negative Depression Screening Done: Yes 34580 - PHQ-9 Billing: Yes Source: Developed by Drs. Nikita Galan, Gita Sen, Barrie Olmstead and colleagues, with an educational manny from [employer]. Thrive Questionnaire Date Thrive assessed: 11/06/24 I am a: Patient What is your living situation today?: I have a steady place to live Within the past 12 months, did the food you bought not last and you didn't have the money to get more?: Never true Within the past 12 months, did you worry whether your food would run out before you got money to buy more?: Sometimes True Do you have trouble paying for medicines?: Yes Do you have trouble getting transportation to medical appointments?: No Do you have trouble paying your heating and electricity bill?: Yes Do you have trouble taking care of your child, family member or friend?: No Do you have trouble with day-to-day activities such as bathing, preparing meals, shopping, managing finances, etc.?: No Are you currently unemployed and looking for a job?: No Are you interested in more education?: Yes Please select the resources that you would like help with: Food and Paying for medicine Currently or been in a relationship where the following occur: No concerns reported THRIVE Score: 2 AUDIT C Alcohol Use Questionnaire (AUDIT-C) 1. How often do you have a drink containing alcohol?: Monthly or less 2. How many drinks containing alcohol do you have on a typical day when you are drinking?: 1 or 2 3. How often do you have six or more drinks on one occasion?: Never Total Score: 1 VALDEZ-7 AMB Questionnaire VALDEZ-7 Date VALDEZ - 7 assessed: 11/06/24 Feeling nervous, anxious, or on edge: 1 = Several days Not being able to stop or control worryin = Not at all Worrying too much about different things: 1 = Several days Trouble relaxin = Nearly every day Being so restless that it is hard to sit still: 1 = Several days Becoming easily annoyed or irritable: 1 = Several days Feeling afraid as if something awful might happen: 0 = Not at all Total VALDEZ-7 score (0-4 normal; 5-9 mild; 10-14 moderate; 15-21 severe): 7 Source: Developed by Drs. Nikita Galan, Gita Sen, Barrie Olmstead and colleagues, with an educational manny from [employer]. VALDEZ-7 Assessment Billing VALDEZ-7 Assessment Tool: VALDEZ-7 Assessment 52673 Physical exam (Primary Care) Vital Signs: Last Vital Signs Pulse 72 11/06/24 12:50 Resp 18 11/06/24 12:50 BP 120/76 11/06/24 12:50 Pulse Ox 98 11/06/24 12:50 Oxygen Delivery Method Room Air 11/06/24 12:50 BMI result Body Mass Index 35.7 Tobacco/Smoking Status: Tobacco use Status Tobacco use date assessed 11/06/24 11/06/24 12:59 Patient Tobacco Use Status Former Tobacco user 11/06/24 12:50 e-Cigarette/Vaping Use Never Used 11/06/24 12:59 PHQ-9: PHQ-9 Score PHQ-9: Total score 2 11/06/24 12:59 Depression Screening Interpretation: Negative Thrive Assessment: Date of Thrive Assessment Date Thrive assessed 11/06/24 11/06/24 12:59 Currently or been in a relationship where the following occur: No concerns reported Coding Level of Care Code Est Pt Prev Care 18-39y(85164) Diagnoses Physical exam Z00. Additional Codes VALDEZ-7 Assessment Billing - VALDEZ-7 Assessment Tool: VALDEZ-7 Assessment 49374 ([id number]) PHQ-9 - 55696 - PHQ-9 Billing: Yes ([id number]) Assessment & Plan Assessment & Plan (1) Physical exam: Code(s): Z00.00 - Encounter for general adult medical examination without abnormal findings Category: Medical Plan . Orders: Orders Comprehensive [place]. Panel Fast Today Z00.00 - Encounter for general adult medical examination without abnormal findings UA CC w/rflx Micro + Cult Today Z00.00 - Encounter for general adult medical examination without abnormal findings Complete Blood Count Auto Diff Today Z00.00 - Encounter for general adult medical examination without abnormal findings TSH reflex Free T4 Today Z00.00 - Encounter for general adult medical examination without abnormal findings Lipid Panel Today Z00.00 - Encounter for general adult medical examination without abnormal findings
== END 2024-11-06 13:24 | disposition home or self-care (01) ==
LOC: HO.HMCC 12:49
PROVIDERS: PCP Nurse Practitioner Family; Visit Provider Nurse Practitioner Family
DX: Z00.00 Encounter for general adult medical examination without abnormal findings (principal)

== ENCOUNTER → 2024-11-06 12:48 | Outpatient (BNVA) | payer SELFPAY | PROVIDERS: PCP Nurse Practitioner Family; Visit Provider Nurse Practitioner Family | DX: Z00.00 Encounter for general adult medical examination without abnormal findings (principal); K21.9 Gastro-esophageal reflux disease without esophagitis; Z86.16 Personal history of COVID-19 | CPT/HCPCS: 96127 ==

== ENCOUNTER 2025-05-10 07:28 | Outpatient (REF) | payer BC, SELFPAY ==
[2025-05-10 11:43] LABS: MANUAL DIFF FLAG NO
[2025-05-10 11:53] LABS: Hematocrit 44.6 % (42.0-52.0); Hemoglobin 14.8 g/dl (14.0-18.0); Imm Gran Abs Auto 0.01 X10*3/uL (0.00-0.03); Imm Gran Pct Auto 0.2 % (0.0-0.4); Lymphocytes Absolute Auto 2.1 X10*3/uL (1.2-4.9); Mean Corpuscular HGB Conc 33.2 g/dl (31.0-36.0); Mean Corpuscular Hemoglobin 27.6 pg (27.0-33.0); Mean Corpuscular Volume 83.1 fL (80.0-98.0); NRBC Abs Auto 0.000 X10*3/uL (0.0-0.012); NRBC Pct Auto 0.0 /100WBC (0.0-0.2); Platelet Count 251 X10*3/uL (160-400); Red Blood Count 5.37 X10*6/uL (4.60-5.80); White Blood Count 5.8 X10*3/uL (4.8-10.8)
[2025-05-10 12:05] LABS: Appearance Urine Turbid; Glucose Urine UA Negative (Negative); PH 6.0 (5.0-9.0); Specific Gravity - Urine 1.025 (1.005-1.025); UMIC TRIGGER UACC YES
[2025-05-10 12:32] LABS: Alanine Aminotransferase 27 U/L (0-40); Albumin Level 4.4 g/dL (3.5-5.0); Alkaline Phosphatase 90 U/L (39-117); Anion Gap 12 (12-20); Aspartate Amino Transferase 29 U/L (5-37); Blood Urea Nitrogen 15 mg/dL (9-16); Calcium 9.4 mg/dL (8.4-10.2); Carbon Dioxide 25 mmol/L (22-29); Chloride 105 mmol/L (96-108); Cholesterol 146 mg/dL (<200); Estimated Glomerular Filt Rate > 60; HDL Cholesterol 34 mg/dL (>40); Potassium 4.4 mmol/L (3.3-5.1); Sodium 138 mmol/L (135-145); Total Protein 7.7 g/dL (6.5-8.0); Triglycerides 68 mg/dL (<150)
== END 2025-05-10 07:29 | disposition home or self-care (01) ==
LOC: HO.HMGCLDS 07:28
PROVIDERS: PCP Nurse Practitioner Family; Visit Provider Nurse Practitioner Family
DX: Z00.00 Encounter for general adult medical examination without abnormal findings (principal); Z13.29 Encounter for screening for other suspected endocrine disorder; Z13.6 Encounter for screening for cardiovascular disorders
CPT/HCPCS: 36415; 80053; 80061; 81001; 81003; 84443; 85025

== ENCOUNTER 2025-05-14 10:22 | Outpatient (AMB) | payer BC, SELFPAY ==
[2025-05-14 10:55] VITALS: BP 110/70; PULSE 87; RESP 18; O2SAT 97; BMI 35.9
--- NOTE | 2025-05-14 10:55 | A.OFFPC_ITS ---
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 Accompanied by: Self / Same As Patient Allergies No Known Allergies Allergy (Verified 05/14/25 11:00) Medication List - Last Reconciled 05/14/25 by LINETTE Mitchell- ascorbate calcium (vitamin C) 500 mg PO DAILY atorvastatin 10 mg PO BEDTIME buspirone 5 mg PO BID 30 days mecobalamin (vitamin B12) mcg PO omeprazole 40 mg PO DAILY 90 days Pepcid (famotidine) 20 mg PO BEDTIME NS polyethylene glycol 3350 (Miralax) 17 grams PO DAILY PRN semaglutide (weight loss) 0.5 mg (0.5 mL) subcut QWEEK simethicone 250 mg PO DAILY PRN 30 days sucralfate 1 g PO BEDTIME Tobacco use date assessed: 05/14/25 Dental Screening Dental Screen Date: 05/14/25 Did you have a dental visit in the last 12 months?: Yes Did you have a dental problem in the last 6 months where you did not have access to dental care?: No Was dental information given to patient?: Patient has dentist HPI 6 month follow up HPI Details Chief Complaint The patient presents for a follow-up visit for management of obesity and dyslipidemia. History of Present Illness The patient is a 29-year-old male presenting for follow-up for obesity and dyslipidemia. He is currently using a GLP-1 agonist for weight loss, which has been working well, and he is tolerating it without issue. He reports increasing his gym attendance and monitoring his diet, which has contributed to his weight loss. His LDL is at 99. Social History - Exercise: Patient reports he is going to the gym more. - Nutrition: Patient is watching his t more. - Weight management: Patient is actively working on weight loss through diet, exercise, and a GLP-1 agonist. Health Maintenance - Weight management: The patient is succ essfully losing weight with a GLP-1 agonist, increased gym attendance, and dietary modifications. - Screening labs: LDL is at 99. Review of Systems - General: Reports feeling well. - Cardiovascular: Denies chest pain. - Respiratory: Denies shortness of breat h. - Neurological: Denies dizziness. - Eyes: Denies vision problems. Physical Exam General: Cooperative, healthy appearing, comfortable, no acute distress and well developed, obese Orientation: Patient oriented x3 Limitations: No limitations Head: Normal to inspection Ears: Hearing grossly normal bilaterally Nose: Normal external nose present Face and sinus: Normal facial exam Eyes: Appearance normal, both eyes and all related structures Neck: Normal visual inspection and Yes full ROM Respiratory: Normal respiratory effort and able to speak in complete sentences. Clear to auscultation bilaterally Cardiovascular: Regular rate and rhythm. Normal S1 and S2 GI: Normal to inspection. Soft to palpation and nontender Skin: No rashes or lesions noted Neuro: Patient oriented x3 Extremities: Normal to inspection Results - Labs: LDL is 99. Plan 1. Obesity The patient has shown good progress with weight loss, supported by dietary changes, increased gym attendance, and the use of a GLP-1 agonist. He is tolerating the medication well. The plan is to continue the GLP-1 agonist and proceed with an increased dose. 2. Dyslipidemia The patient's LDL is at 99. Management will continue with lifestyle modifications, including diet and exercise, which are also addressing his obesi ty. Discussion Notes I discussed the patient's successful progress in managing his obesity and dyslipidemia. We reviewed his LDL level of 99 and his ongoing weight loss, which is aided by his increased physical activity, dietary modifications, and use of a GLP-1 agonist. I confirmed that he is tolerating the medication well, and we will proceed with an increased dose, which I will send to his pharmacy. Patient Instructions - Continue your efforts with diet and go ing to the gym, as they are working well for your weight loss. - Continue taking your weight loss medic ation (GLP-1 agonist). - I have sent a prescription for the nex t increased dose of your medication. [facility] Medical History Elevated cholesterol GERD (gastroesophageal reflux disease) Sacral pain Surgical History History of esophagogastroduodenoscopy (EGD) History of surgical removal of pilonidal cyst Family History Mother Substance use disorder Social History Housing: Apartment Alcohol intake: current Alcohol intake frequency: holidays/special occasions only Patient Tobacco Use Status: Former Tobacco user e-Cigarette/Vaping Use: Never Used service: No Current occupational status: employed Current occupation: [employer] Current occupational exposures/hazards: No Cognitive needs: No Hearing needs: No Vision needs: No Questionnaire PHQ-9 Over the last 2 weeks, how often have you been bothered by any of the following problems? 1. Little interest or pleasure in doing things: not at all 2. Feeling down, depressed, or hopeless: not at all 3. Trouble falling or staying asleep, or sleeping too much: not at all 4. Feeling tired or having little energy: not at all 5. Poor appetite or overeating: not at all 6. Feeling bad about yourself - or that you are a failure or have let yourself or your family down: not at all 7. Trouble concentrating on things, such as reading the newspaper or watching television: not at all 8. Moving or speaking so slowly that other people could have noticed. Or the opposite - being so fidgety or restless that you have been moving around a lot more than usual: not at all 9. Thoughts that you would be better off or of hurting yourself in some way: not at all Total score: 0 Depression Screening Interpretation: Negative Depression Screening Done: Yes 64551 - PHQ-9 Billing: Yes Source: Developed by Drs. Nikita Galan, Gita Sen, Barrie Olmstead and colleagues, with an educational manny from [employer]. Thrive Questionnaire Date Thrive assessed: 11/03/24 I am a: Patient What is your living situation today?: I have a steady place to live Within the past 12 months, did the food you bought not last and you didn't have the money to get more?: Never true Within the past 12 months, did you worry whether your food would run out before you got money to buy more?: Sometimes True Do you have trouble paying for medicines?: Yes Do you have trouble getting transportation to medical appointments?: No Do you have trouble paying your heating and electricity bill?: Yes Do you have trouble taking care of your child, family member or friend?: No Do you have trouble with day-to-day activities such as bathing, preparing meals, shopping, managing finances, etc.?: No Are you currently unemployed and looking for a job?: No Are you interested in more education?: Yes Currently or been in a relationship where the following occur: No concerns reported THRIVE Score: 2 VALDEZ-7 AMB Questionnaire VALDEZ-7 Date VALDEZ - 7 assessed: 05/14/25 Feeling nervous, anxious, or on edge: 0 = Not at all Not being able to stop or control worryin = Not at all Worrying too much about different things: 0 = Not at all Trouble relaxin = Not at all Being so restless that it is hard to sit still: 0 = Not at all Becoming easily annoyed or irritable: 0 = Not at all Feeling afraid as if something awful might happen: 0 = Not at all Total VALDEZ-7 score (0-4 normal; 5-9 mild; 10-14 moderate; 15-21 severe): 0 Source: Developed by Drs. Nikita Galan, Gita Sen, Barrie Olmstead and colleagues, with an educational manny from [employer]. VALDEZ-7 Assessment Billing VALDEZ-7 Assessment Tool: VALDEZ-7 Assessment 25769 Physical exam (Primary Care) Vital Signs: Last Vital Signs Pulse 87 05/14/25 10:55 Resp 18 05/14/25 10:55 BP 110/70 05/14/25 10:55 Pulse Ox 97 05/14/25 10:55 Oxygen Delivery Method Room Air 05/14/25 10:55 BMI result Body Mass Index 35.9 Tobacco/Smoking Status: Tobacco use Status Tobacco use date assessed 05/14/25 05/14/25 11:01 Patient Tobacco Use Status Former Tobacco user 05/14/25 11:01 e-Cigarette/Vaping Use Never Used 05/14/25 11:01 PHQ-9: PHQ-9 Score PHQ-9: Total score 0 05/14/25 11:01 Depression Screening Interpretation: Negative Thrive Assessment: Date of Thrive Assessment Date Thrive assessed 11/03/24 05/14/25 11:01 Currently or been in a relationship where the following occur: No concerns reported Coding Level of Care Code Est Pt Level 3 (97703) Diagnoses Obesity E66.9 Dyslipidemia E78.5 Additional Codes VALDEZ-7 Assessment Billing - VALDEZ-7 Assessment Tool: VALDEZ-7 Assessment 03677 ([id number]) PHQ-9 - 63336 - PHQ-9 Billing: Yes ([id number]) Assessment & Plan Assessment & Plan (1) Obesity: Code(s): E66.9 - Obesity, unspecified Category: Medical (2) Dyslipidemia: Code(s): E78.5 - Hyperlipidemia, unspecified Category: Medical Plan . Medications: Changed From semaglutide (weight loss) administer weeks 1 through 4 of therapy, increased dose 0.5 mg (0.5 mL) subcut QWEEK 2 mL 0RF To semaglutide (weight loss) administer weeks 1 through 4 of therapy, increased dose 0.5 mg (0.25 mL) subcut QWEEK 2 mL 0RF
== END 2025-05-14 12:26 | disposition home or self-care (01) ==
LOC: HO.HMCC 10:23
PROVIDERS: PCP Nurse Practitioner Family; Visit Provider Nurse Practitioner Family
DX: E66.9 Obesity, unspecified (principal); E78.5 Hyperlipidemia, unspecified; Z68.35 Body mass index [BMI] 35.0-35.9, adult

== ENCOUNTER → 2025-05-14 10:22 | Outpatient (BNVA) | payer BC, SELFPAY | PROVIDERS: PCP Nurse Practitioner Family; Visit Provider Nurse Practitioner Family | DX: E66.9 Obesity, unspecified (principal); E78.5 Hyperlipidemia, unspecified; Z68.35 Body mass index [BMI] 35.0-35.9, adult | CPT/HCPCS: 96127 ==